=== PATIENT | female | born 1980 | race African-American/Black ===

== ENCOUNTER 2017-07-04 20:47 | Emergency (ER) | payer MEDICARE, MEDICAID ==
[~2017-07-04] VITALS: Ht 152.4 cm; Wt 79.5 kg
[~2017-07-04 20:47] MED LIST: ASPI-1264 PO; CLOT15CR5 TOP; OXYC-658 PO
[2017-07-04 21:05] VITALS: BP 129/73
[2017-07-04] MEDS ORDERED: LOPE-144 PO (22:02)
[2017-07-04] MEDS ORDERED: ONDA4TAB9 PO (22:02)
== END 2017-07-04 22:19 | disposition home or self-care (01) ==
LOC: ER 20:48
DX: F19.10 Other psychoactive substance abuse, uncomplicated (principal); F12.10 Cannabis abuse, uncomplicated; F15.10 Other stimulant abuse, uncomplicated; G89.29 Other chronic pain; Z90.49 Acquired absence of other specified parts of digestive tract; Z88.5 Allergy status to narcotic agent; Z79.82 Long term (current) use of aspirin; Z56.0 Unemployment, unspecified
CPT/HCPCS: 99283

== ENCOUNTER 2017-10-12 00:16 | Emergency (ER) | payer MEDICARE, MEDICAID ==
[~2017-10-12 00:16] MED LIST changes: +LOPE-144 PO
== END 2017-10-12 01:36 | disposition left against medical advice (07) ==
LOC: ER 00:17
DX: R25.2 Cramp and spasm (principal); Z53.21 Procedure and treatment not carried out due to patient leaving prior to being seen by health care provider

== ENCOUNTER 2017-10-12 03:02 | Emergency (ER) | payer MEDICARE, MEDICAID ==
[~2017-10-12] VITALS: Ht 152.4 cm; Wt 68.7 kg
[2017-10-12 03:05] VITALS: BP 163/112
[2017-10-12 03:26] LABS: CLARITY,URINE SLIGHTLY CLOUDY (Clear); COLOR,URINE YELLOW (Yellow); GLUCOSE, URINE NEGATIVE (Neg); KETONES,URINE NEGATIVE (Neg); LEUKOCYTE ESTERASE ,URINE SMALL (Neg); NITRITES, URINE NEGATIVE (Neg); OCCULT BLOOD,URINE TRACE-INTACT (Neg); PH,URINE 5.5 (4.8-8.0); PROTEIN,URINE 30 mg/dl (Neg); UROBILINOGEN,URINE 0.2 E.U/dL (0.2-1.0)
[2017-10-12 03:29] LABS: UA COLLECTION TYPE CLN CATCH MIDSTREAM
[2017-10-12 03:36] LABS: URINE AMPHETAMINE SCREEN POSITIVE (Neg); URINE BARBITUATE SCREEN NEGATIVE (Neg); URINE BENZODIAZEPINES SCREEN NEGATIVE (Neg); URINE CANNABINOID SCREEN NEGATIVE (Neg); URINE COCAINE SCREEN NEGATIVE (Neg); URINE METHADONE SCREEN NEGATIVE (Neg); URINE OPIATE SCREEN POSITIVE (Neg); URINE PHENCYCLIDINE SCREEN NEGATIVE (Neg)
[2017-10-12 03:42] LABS: BACTERIA,URINE 1+ /HPF (Neg); SQUAMOUS EPITHELIAL CELL,UR MODERATE /LPF (FEW)
[2017-10-12 03:43] LABS: MUCUS STRANDS MODERATE /LPF (Neg)
[2017-10-12] MEDS ORDERED: fluconazole 100mg tablet PO ONE (05:05)
[2017-10-12] MEDS ORDERED: metroNIDAZOLE 500mg tablet PO ONE (05:05)
[2017-10-12] MEDS ORDERED: fluconazole 150mg tablet PO ONE (05:45)
== END 2017-10-12 05:51 | disposition home or self-care (01) ==
LOC: ER 03:02
DX: N89.8 Other specified noninflammatory disorders of vagina (principal); F12.90 Cannabis use, unspecified, uncomplicated; F15.90 Other stimulant use, unspecified, uncomplicated; F11.90 Opioid use, unspecified, uncomplicated; Z90.49 Acquired absence of other specified parts of digestive tract; Z98.890 Other specified postprocedural states; Z56.0 Unemployment, unspecified; Z88.5 Allergy status to narcotic agent; Z79.82 Long term (current) use of aspirin; Z79.899 Other long term (current) drug therapy
CPT/HCPCS: 80305; 81001; 87088; 99284; J3490

== ENCOUNTER 2018-03-09 08:16 | Emergency (ER) | payer MEDICARE, MEDICAID ==
[~2018-03-09] VITALS: Ht 152.4 cm; Wt 75.0 kg
[~2018-03-09 08:16] MED LIST changes: +SULF1TAB49 PO
[2018-03-09] MEDS ORDERED: mupirocin 2% ointment 22GM TP STA (09:13)
[2018-03-09 09:35] VITALS: BP 159/101
== END 2018-03-09 09:37 | disposition home or self-care (01) ==
LOC: ER 08:17
DX: L02.415 Cutaneous abscess of right lower limb (principal); G89.29 Other chronic pain; F12.10 Cannabis abuse, uncomplicated; F15.10 Other stimulant abuse, uncomplicated; Z88.5 Allergy status to narcotic agent; Z79.82 Long term (current) use of aspirin; Z79.899 Other long term (current) drug therapy; Z90.49 Acquired absence of other specified parts of digestive tract; Z56.0 Unemployment, unspecified; Z86.19 Personal history of other infectious and parasitic diseases
CPT/HCPCS: 99282

== ENCOUNTER 2018-03-14 05:43 | Emergency (ER) | payer MEDICARE, MEDICAID ==
[~2018-03-14] VITALS: Ht 152.4 cm; Wt 74.0 kg
[2018-03-14 06:22] LABS: CLARITY,URINE SLIGHTLY CLOUDY (Clear); COLOR,URINE YELLOW (Yellow); GLUCOSE, URINE NEGATIVE (Neg); KETONES,URINE 15 mg/dl (Neg); LEUKOCYTE ESTERASE ,URINE NEGATIVE (Neg); NITRITES, URINE NEGATIVE (Neg); OCCULT BLOOD,URINE NEGATIVE (Neg); PH,URINE 5.5 (4.8-8.0); PROTEIN,URINE 100 mg/dl (Neg); URINE HCG NEGATIVE (NEG)
[2018-03-14 06:31] LABS: UA COLLECTION TYPE VOIDED
[2018-03-14 06:37] LABS: BACTERIA,URINE FEW /HPF (Neg); RBC,URINE NONE SEEN /HPF (0-2); WBC,URINE 0-4 /HPF (0-4)
[2018-03-14 06:38] LABS: CAL OXALATE CRYSTALS 4+ /HPF (NEGATIVE); MUCUS STRANDS MODERATE /LPF (Neg); SQUAMOUS EPITHELIAL CELL,UR MANY /LPF (FEW)
[2018-03-14] MEDS ORDERED: famotidine/PF 10 mg/ml inj IV ONE (07:05)
[2018-03-14] MEDS ORDERED: proCHLORperazine 10 MG/2 ml inj IV ONE (07:05)
[2018-03-14] MEDS ORDERED: normal saline 1000ML IV soln IVB ONE (07:05)
[2018-03-14 08:38] LABS: CLARITY,URINE CLOUDY (Clear); GLUCOSE, URINE NEGATIVE (Neg); KETONES,URINE NEGATIVE (Neg); LEUKOCYTE ESTERASE ,URINE NEGATIVE (Neg); NITRITES, URINE NEGATIVE (Neg); OCCULT BLOOD,URINE NEGATIVE (Neg); PH,URINE 5.5 (4.8-8.0); PROTEIN,URINE 30 mg/dl (Neg); UROBILINOGEN,URINE 0.2 E.U/dL (0.2-1.0)
[2018-03-14 08:52] LABS: UA COLLECTION TYPE CLN CATCH MIDSTREAM
[2018-03-14 08:53] LABS: COLOR,URINE DARK YELLOW (Yellow)
[2018-03-14 08:54] LABS: RBC,URINE NONE SEEN /HPF (0-2); WBC,URINE 0-4 /HPF (0-4)
[2018-03-14 08:55] LABS: BACTERIA,URINE FEW /HPF (Neg); CAL OXALATE CRYSTALS 4+ /HPF (NEGATIVE); MUCUS STRANDS MANY /LPF (Neg); SQUAMOUS EPITHELIAL CELL,UR MANY /LPF (FEW)
[2018-03-14 08:56] LABS: BASOPHILS # (AUTO) 0.1 X10'3 (0-0.2); BASOPHILS % (AUTO) 0.7 % (0-1); EOSINOPHILS # (AUTO) 0.2 X10'3 (0-0.9); EOSINOPHILS % (AUTO) 2.7 % (0-6); HEMOGLOBIN 14.9 g/dl (12.0-16.0); LYMPHOCYTES # (AUTO) 2.7 X10'3 (1.1-4.8); LYMPHOCYTES % (AUTO) 34.3 % (21-51); MEAN CORPUSCULAR HEMOGLOBIN 28.9 PG (27.0-31.0); MEAN CORPUSCULAR VOLUME 85.1 FL (78-98); MEAN PLATELET VOLUME 7.3 FL (7.4-10.4); MONOCYTES # (AUTO) 0.5 X10'3 (0-0.9); NEUTROPHILS # (AUTO) 4.4 X10'3 (1.8-7.7); NEUTROPHILS % (AUTO) 56.3 % (42-75); PLATELET COUNT 430 X10'3 (140-440); RED BLOOD COUNT 5.17 X10'6 (4.20-5.60); RED CELL DISTRIBUTION WIDTH 13.6 % (11.5-14.5); WHITE BLOOD COUNT 7.8 X10'3 (4.5-11.0)
[2018-03-14 09:07] LABS: HCG SERUM QL NEGATIVE
[2018-03-14 09:12] LABS: ALANINE AMINOTRANSFERASE 35 U/L (12-78); ALBUMIN 3.8 G/DL (3.4-5.0); ALBUMIN/GLOBULIN RATIO 0.9 (1.1-1.5); ALKALINE PHOSPHATASE 86 IU/L (46-116); ANION GAP 11 (8-16); ASPARTATE AMINO TRANSFERASE 24 U/L (10-37); BILIRUBIN,TOTAL 0.3 MG/DL (0.1-1.0); BLOOD UREA NITROGEN 9 MG/DL (7-18); BUN/CREATININE RATIO 14.5 (6.6-38.0); CALCIUM 9.1 MG/DL (8.5-10.1); CHLORIDE 102 MMOL/L (99-107); CREATININE 0.62 MG/DL (0.40-0.90); GLUCOSE 122 MG/DL (70-104); LIPASE 83 U/L (73-393); POTASSIUM 3.9 MMOL/L (3.5-5.1); SODIUM 140 MMOL/L (135-145); TOTAL CARBON DIOXIDE 27.5 MMOL/L (24-32); TOTAL PROTEIN 8.2 G/DL (6.4-8.2); eGFR > 90 ML/MIN
[2018-03-14] MEDS ORDERED: NAPR-56 PO (09:29)
[2018-03-14] MEDS ORDERED: ketorolac trometh. 30mg/ml inj. IM ONE (09:30)
[2018-03-14] MEDS ORDERED: ketorolac trometh. 30mg/ml inj. IV ONE (09:40)
[2018-03-14 09:52] VITALS: BP 143/97
== END 2018-03-14 09:54 | disposition home or self-care (01) ==
LOC: ER 05:45
DX: S39.011A Strain of muscle, fascia and tendon of abdomen, initial encounter (principal); R10.84 Generalized abdominal pain; F12.90 Cannabis use, unspecified, uncomplicated; F15.90 Other stimulant use, unspecified, uncomplicated; F11.90 Opioid use, unspecified, uncomplicated; G89.29 Other chronic pain; F17.200 Nicotine dependence, unspecified, uncomplicated; Z90.49 Acquired absence of other specified parts of digestive tract; Z98.890 Other specified postprocedural states; Z56.0 Unemployment, unspecified; Z88.5 Allergy status to narcotic agent; Z79.82 Long term (current) use of aspirin; Z79.899 Other long term (current) drug therapy; X58.XXXA Exposure to other specified factors, initial encounter; Y93.89 Activity, other specified; Y92.89 Other specified places as the place of occurrence of the external cause; Y99.9 Unspecified external cause status
CPT/HCPCS: 36415; 74018; 80053; 81001; 81025; 83690; 84703; 85025; 96374; 96375; 99284; J0780; J1885; J3490; J7030

== ENCOUNTER 2018-04-14 03:11 | Inpatient (IN) | payer MEDICARE, MEDICAID | END 2018-04-17 10:00 | disposition left against medical advice (07) | LOC: ER 03:11 → ED HOLD 08:10 → ORTHO 4S 15:05 ==

== ENCOUNTER → 2018-04-26 | Emergency (ER) | payer MEDICARE, MEDICAID ==
[~2018-04-26] VITALS: Ht 152.4 cm; Wt 65.9 kg
[2018-04-26 15:34] VITALS: BP 162/104
== END | disposition home or self-care (01) ==
LOC: ER 15:18
DX: L08.9 Local infection of the skin and subcutaneous tissue, unspecified (principal); G89.29 Other chronic pain; F15.90 Other stimulant use, unspecified, uncomplicated; F11.90 Opioid use, unspecified, uncomplicated; Z59.0 Homelessness; Z56.0 Unemployment, unspecified; Z90.49 Acquired absence of other specified parts of digestive tract; Z98.890 Other specified postprocedural states; Z86.14 Personal history of Methicillin resistant Staphylococcus aureus infection; Z88.5 Allergy status to narcotic agent
CPT/HCPCS: 99283

== ENCOUNTER 2018-05-29 09:52 | Emergency (ER) | payer MEDICARE, MEDICAID ==
[~2018-05-29] VITALS: Ht 154.9 cm; Wt 72.6 kg
[2018-05-29 10:11] VITALS: BP 148/92
[2018-05-29] MEDS ORDERED: LIDOcaine 1% w/epiNEPHrine 1:200,000 30ml vial IM ONE (11:35)
[2018-05-29] MEDS ORDERED: CEPH-572 PO (11:41)
[2018-05-29] MEDS ORDERED: SULF1TAB49 PO (11:41)
[2018-05-29] MEDS ORDERED: cephalexin 250mg capsule PO STA (12:26)
[2018-05-29] MEDS ORDERED: sulfamethoxazole/trimethoprim DS (800/160mg) tablet PO ONE (12:30)
[2018-05-29] MEDS ORDERED: ibuprofen tablet 400 MG TABLET PO ONE (12:35)
== END 2018-05-29 12:50 | disposition home or self-care (01) ==
LOC: ER 09:52
DX: L02.414 Cutaneous abscess of left upper limb (principal); F19.10 Other psychoactive substance abuse, uncomplicated; G89.29 Other chronic pain; F15.90 Other stimulant use, unspecified, uncomplicated; F11.90 Opioid use, unspecified, uncomplicated; Z86.14 Personal history of Methicillin resistant Staphylococcus aureus infection; Z88.5 Allergy status to narcotic agent; Z79.899 Other long term (current) drug therapy; Z98.890 Other specified postprocedural states; Z59.0 Homelessness; Z56.0 Unemployment, unspecified
CPT/HCPCS: 10060; 87070; 87186; 99284; J3490

== ENCOUNTER 2018-06-01 01:12 | Emergency (ER) | payer MEDICARE, MEDICAID ==
[~2018-06-01] VITALS: Ht 152.4 cm; Wt 73.6 kg
[~2018-06-01 01:12] MED LIST changes: -ASPI-1264 PO; +CEPH-572 PO; -CLOT15CR5 TOP; -LOPE-144 PO; -OXYC-658 PO
[2018-06-01 01:18] VITALS: BP 155/107
--- NOTE | 2018-06-01 03:00 | NUR ---
REGISTRATION REPORTS PT GOING TO [facility]WOBS. ED PROVIDER UNAVAILABLE (CRITICAL PT. IN ED) PT REPORTS SHE WILL BE BACK IN A COUPLE OF HOURS. DR MULLIGAN INFORMED
== END 2018-06-01 03:03 | disposition left against medical advice (07) ==
LOC: ER 01:12
DX: Z53.21 Procedure and treatment not carried out due to patient leaving prior to being seen by health care provider (principal)

== ENCOUNTER 2018-07-21 12:56 | Emergency (ER) | payer MEDICARE, MEDICAID ==
[~2018-07-21] VITALS: Ht 152.4 cm; Wt 73.4 kg
[2018-07-21] MEDS ORDERED: normal saline 1000ML IV soln IVB STA (14:22)
[2018-07-21] MEDS ORDERED: epiNEPHrine 1 mg/ml inj SQ ONE (14:25)
[2018-07-21] MEDS ORDERED: diphenhydrAMINE 50 mg/ml inj IV ONE (14:25)
[2018-07-21] MEDS ORDERED: methylPREDNISolone sod succ 125mg/2ml vial IV ONE (14:25)
[2018-07-21] MEDS ORDERED: PRED20TA PO (15:38)
[2018-07-21] MEDS ORDERED: FAMO40TA73 PO (15:38)
[2018-07-21] MEDS ORDERED: DIPH-423 PO (15:38)
[2018-07-21 16:10] VITALS: BP 180/113
== END 2018-07-21 16:12 | disposition home or self-care (01) ==
LOC: ER 12:57
DX: T78.3XXA Angioneurotic edema, initial encounter (principal); G89.29 Other chronic pain; M54.9 Dorsalgia, unspecified; F15.90 Other stimulant use, unspecified, uncomplicated; F11.90 Opioid use, unspecified, uncomplicated; Z90.49 Acquired absence of other specified parts of digestive tract; Z56.0 Unemployment, unspecified; Z59.0 Homelessness; Z88.6 Allergy status to analgesic agent
CPT/HCPCS: 96372; 96374; 96375; 99284; J0171; J1200; J2930; J7030

== ENCOUNTER 2018-07-27 23:40 | Emergency (ER) | payer MEDICARE, MEDICAID ==
[~2018-07-27] VITALS: Ht 152.4 cm; Wt 75.2 kg
[~2018-07-27 23:40] MED LIST changes: -CEPH-572 PO; +DIPH-423 PO; +FAMO40TA73 PO; +PRED20TA PO; -SULF1TAB49 PO
[2018-07-27 23:50] VITALS: BP 170/117
[2018-07-28] MEDS ORDERED: TRAZ150T78 PO (00:11)
[2018-07-28] MEDS ORDERED: CLON-529 PO (00:11)
[2018-07-28] MEDS ORDERED: ONDA4TAB6 PO (00:11)
[2018-08-01] MEDS ORDERED: CLON1PAT15 TOP (12:48)
[2018-08-01] MEDS ORDERED: ONDA8TAB13 PO (12:48)
== END 2018-07-28 01:28 | disposition home or self-care (01) ==
LOC: ER 23:41
DX: F11.10 Opioid abuse, uncomplicated (principal); G89.29 Other chronic pain; F15.90 Other stimulant use, unspecified, uncomplicated; Z56.0 Unemployment, unspecified; Z59.0 Homelessness; Z88.5 Allergy status to narcotic agent; Z79.899 Other long term (current) drug therapy; Z86.14 Personal history of Methicillin resistant Staphylococcus aureus infection; Z86.19 Personal history of other infectious and parasitic diseases; Z90.49 Acquired absence of other specified parts of digestive tract; Z98.890 Other specified postprocedural states
CPT/HCPCS: 99283

== ENCOUNTER 2018-08-02 03:26 | Emergency (ER) | payer MEDICARE, MEDICAID ==
[~2018-08-02] VITALS: Ht 152.4 cm; Wt 54.5 kg
[~2018-08-02 03:26] MED LIST changes: +CLON-529 PO; +CLON1PAT15 TOP; +ONDA4TAB6 PO; +ONDA8TAB13 PO; +TRAZ150T78 PO
[2018-08-02 03:28] VITALS: BP 132/55
[2018-08-02] MEDS ORDERED: cloNIDine 0.1 mg tablet PO ONE (03:35)
== END 2018-08-02 03:48 | disposition home or self-care (01) ==
LOC: ER 03:27
DX: F11.23 Opioid dependence with withdrawal (principal); G89.29 Other chronic pain; F15.90 Other stimulant use, unspecified, uncomplicated; Z90.49 Acquired absence of other specified parts of digestive tract; Z98.890 Other specified postprocedural states; Z88.5 Allergy status to narcotic agent; Z79.899 Other long term (current) drug therapy; Z59.0 Homelessness; Z56.0 Unemployment, unspecified
CPT/HCPCS: 99283

== ENCOUNTER 2018-08-21 10:23 | Emergency (ER) | payer MEDICARE, MEDICAID ==
[~2018-08-21] VITALS: Ht 152.4 cm; Wt 74.5 kg
[2018-08-21 11:17] VITALS: BP 146/79
== END 2018-08-21 11:18 | disposition home or self-care (01) ==
LOC: ER 10:24
DX: L02.31 Cutaneous abscess of buttock (principal); G89.29 Other chronic pain; M54.9 Dorsalgia, unspecified; F15.90 Other stimulant use, unspecified, uncomplicated; F11.90 Opioid use, unspecified, uncomplicated; Z90.49 Acquired absence of other specified parts of digestive tract; Z56.0 Unemployment, unspecified; Z59.0 Homelessness; Z88.6 Allergy status to analgesic agent
CPT/HCPCS: 99282

== ENCOUNTER 2018-10-07 20:07 | Emergency (ER) | payer MEDICARE, MEDICAID ==
[~2018-10-07] VITALS: Ht 152.4 cm; Wt 74.9 kg
[~2018-10-07 20:07] MED LIST changes: -PRED20TA PO
[2018-10-07 20:17] VITALS: BP 198/107
--- NOTE | 2018-10-07 21:50 | NUR ---
Call placed to number on file after attempting to Rm 3 times. Recieved message stating the caller is unavailable. Unable to leave message for follow up. Dr. Tima colorado.
== END 2018-10-07 21:52 | disposition left against medical advice (07) ==
LOC: ER 20:10 → EEVIPCON 20:10 → ER 21:52
DX: N89.8 Other specified noninflammatory disorders of vagina (principal); Z53.21 Procedure and treatment not carried out due to patient leaving prior to being seen by health care provider

== ENCOUNTER 2018-10-11 02:24 | Emergency (ER) | payer MEDICARE, MEDICAID ==
[~2018-10-11] VITALS: Ht 152.4 cm; Wt 73.0 kg
[2018-10-11] MEDS ORDERED: LIDOcaine 1% w/epiNEPHrine 1:200,000 30ml vial IM ONE (04:20)
[2018-10-11] MEDS ORDERED: SULF1TAB49 PO (05:19)
[2018-10-11] MEDS ORDERED: CLIN-96 PO (05:19)
[2018-10-11 05:32] VITALS: BP 149/75
== END 2018-10-11 05:43 | disposition home or self-care (01) ==
LOC: ER 02:25
DX: L02.416 Cutaneous abscess of left lower limb (principal); G89.29 Other chronic pain; F17.200 Nicotine dependence, unspecified, uncomplicated; F15.90 Other stimulant use, unspecified, uncomplicated; F11.90 Opioid use, unspecified, uncomplicated; Z86.14 Personal history of Methicillin resistant Staphylococcus aureus infection; Z90.49 Acquired absence of other specified parts of digestive tract; Z98.890 Other specified postprocedural states; Z59.0 Homelessness; Z56.0 Unemployment, unspecified; Z88.5 Allergy status to narcotic agent; Z79.2 Long term (current) use of antibiotics; Z79.899 Other long term (current) drug therapy
CPT/HCPCS: 10160; 87070; 87077; 87186; 99283; 99284

== ENCOUNTER 2018-11-08 15:49 | Emergency (ER) | payer MEDICARE, MEDICAID ==
[~2018-11-08 15:49] MED LIST changes: +CLIN-96 PO
== END 2018-11-08 17:27 | disposition left against medical advice (07) ==
LOC: ER 15:51
DX: R10.9 Unspecified abdominal pain (principal); Z53.21 Procedure and treatment not carried out due to patient leaving prior to being seen by health care provider

== ENCOUNTER 2018-12-23 09:50 | Emergency (ER) | payer MEDICARE, MEDICAID ==
[~2018-12-23] VITALS: Ht 152.4 cm; Wt 81.0 kg
[~2018-12-23 09:50] MED LIST changes: +CLIN-90 PO; -CLIN-96 PO
[2018-12-23] MEDS ORDERED: ketorolac trometh inj. 60 MG/2 ML VIAL IM ONE (12:10)
[2018-12-23] MEDS ORDERED: IBUP-1986 PO (12:24)
[2018-12-23 12:40] VITALS: BP 141/92
== END 2018-12-23 13:18 | disposition home or self-care (01) ==
LOC: ER 09:51
DX: R07.89 Other chest pain (principal); G89.29 Other chronic pain; F15.90 Other stimulant use, unspecified, uncomplicated; F11.90 Opioid use, unspecified, uncomplicated; Z59.0 Homelessness; Z56.0 Unemployment, unspecified; Z90.49 Acquired absence of other specified parts of digestive tract; Z98.890 Other specified postprocedural states; Z88.5 Allergy status to narcotic agent; Z79.899 Other long term (current) drug therapy
CPT/HCPCS: 71045; 93005; 96372; 99283; J1885

== ENCOUNTER 2019-01-10 21:38 | Emergency (ER) | payer MEDICARE, MEDICAID ==
[~2019-01-10] VITALS: Ht 152.4 cm; Wt 83.0 kg
[~2019-01-10 21:38] MED LIST changes: -CLIN-90 PO; +CLIN-96 PO; +IBUP-1986 PO
[2019-01-10 22:41] LABS: CLARITY,URINE CLEAR (Clear); COLOR,URINE YELLOW (Yellow); GLUCOSE, URINE NEGATIVE (Neg); KETONES,URINE NEGATIVE (Neg); LEUKOCYTE ESTERASE ,URINE NEGATIVE (Neg); NITRITES, URINE NEGATIVE (Neg); OCCULT BLOOD,URINE NEGATIVE (Neg); PH,URINE 5.5 (4.8-8.0); PROTEIN,URINE TRACE mg/dl (Neg); UROBILINOGEN,URINE 0.2 E.U/dL (0.2-1.0)
[2019-01-10 22:43] LABS: URINE HCG NEGATIVE (NEG)
[2019-01-10 22:44] LABS: BASOPHILS % (AUTO) 0.5 % (0-1); EOSINOPHILS # (AUTO) 0.1 X10'3 (0-0.9); EOSINOPHILS % (AUTO) 1.1 % (0-6); HEMATOCRIT 45.1 % (35.0-45.0); HEMOGLOBIN 15.5 g/dl (12.0-16.0); LYMPHOCYTES # (AUTO) 2.2 X10'3 (1.1-4.8); LYMPHOCYTES % (AUTO) 28.9 % (21-51); MEAN CORPUSCULAR HEMOGLOBIN 29.9 PG (27.0-31.0); MEAN CORPUSCULAR HGB CONC 34.4 g/dL (33.0-36.5); MEAN PLATELET VOLUME 7.5 FL (7.4-10.4); MONOCYTES # (AUTO) 0.6 X10'3 (0-0.9); MONOCYTES % (AUTO) 8.2 % (2-12); NEUTROPHILS # (AUTO) 4.7 X10'3 (1.8-7.7); NEUTROPHILS % (AUTO) 61.3 % (42-75); PLATELET COUNT 239 X10'3 (140-440); RED BLOOD COUNT 5.19 X10'6 (4.20-5.60); RED CELL DISTRIBUTION WIDTH 14.9 % (11.5-14.5); WHITE BLOOD COUNT 7.6 X10'3 (4.5-11.0)
[2019-01-10 22:46] LABS: UA COLLECTION TYPE CLN CATCH MIDSTREAM
[2019-01-10 22:48] LABS: BACTERIA,URINE 2+ /HPF (Neg); HYALINE CASTS 0-3 /LPF (NEGATIVE); MUCUS STRANDS FEW /LPF (Neg); RBC,URINE 0-2 /HPF (0-2); SQUAMOUS EPITHELIAL CELL,UR MANY /LPF (FEW); WBC,URINE 0-4 /HPF (0-4)
[2019-01-10 22:48] LABS: ALANINE AMINOTRANSFERASE 56 U/L (12-78); ALBUMIN/GLOBULIN RATIO 0.8 (1.1-1.5); ALKALINE PHOSPHATASE 89 IU/L (46-116); ANION GAP 9 (8-16); ASPARTATE AMINO TRANSFERASE 42 U/L (10-37); BILIRUBIN,TOTAL 0.4 MG/DL (0.1-1.0); BLOOD UREA NITROGEN 18 MG/DL (7-18); BUN/CREATININE RATIO 26.5 (6.6-38.0); CALCIUM 9.3 MG/DL (8.5-10.1); CHLORIDE 106 MMOL/L (99-107); CREATININE 0.68 MG/DL (0.40-0.90); GLUCOSE 103 MG/DL (70-104); POTASSIUM 3.9 MMOL/L (3.5-5.1); SODIUM 141 MMOL/L (135-145); TOTAL CARBON DIOXIDE 26.1 MMOL/L (24-32); TOTAL PROTEIN 8.8 G/DL (6.4-8.2); eGFR > 90 ML/MIN
--- NOTE | 2019-01-10 23:30 | NUR ---
PT ASKING TO EAT , STSTES SHE WOULD LIKE TO HAVE SOMETHING TO EAT. EDUCATED PT THAT SHE HAS TO FIRST BE SEEN BY MD BEFORE WE CAN OFFER ANY TYPE OF FOOD. PT VERBALIZED SHE WOULD LIKE TO BE SEEN BY
[2019-01-11] MEDS ORDERED: ketorolac tromethamine 15mg/ml inj. IM ONE
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
[2019-01-11 00:42] VITALS: BP 132/73
== END 2019-01-11 00:46 | disposition home or self-care (01) ==
LOC: ER 21:39
DX: R07.89 Other chest pain (principal); M54.5 Low back pain; M25.511 Pain in right shoulder; G89.29 Other chronic pain; F15.90 Other stimulant use, unspecified, uncomplicated; F11.90 Opioid use, unspecified, uncomplicated; Z86.19 Personal history of other infectious and parasitic diseases; Z86.14 Personal history of Methicillin resistant Staphylococcus aureus infection; Z90.49 Acquired absence of other specified parts of digestive tract; Z98.890 Other specified postprocedural states; Z59.0 Homelessness; Z56.0 Unemployment, unspecified; Z88.5 Allergy status to narcotic agent; Z79.899 Other long term (current) drug therapy
CPT/HCPCS: 36415; 71045; 80053; 81001; 81025; 85025; 85610; 93005; 96372; 99284; J1885; 99283

== ENCOUNTER 2019-01-19 22:30 | Emergency (ER) | payer MEDICARE, MEDICAID ==
[~2019-01-19] VITALS: Ht 152.4 cm; Wt 83.6 kg
[2019-01-19 23:17] VITALS: BP 138/103
[2019-01-19 23:37] LABS: BASOPHILS % (AUTO) 0.5 % (0-1); EOSINOPHILS % (AUTO) 0.4 % (0-6); HEMATOCRIT 46.1 % (35.0-45.0); HEMOGLOBIN 15.6 g/dl (12.0-16.0); LYMPHOCYTES # (AUTO) 2.1 X10'3 (1.1-4.8); MEAN CORPUSCULAR HEMOGLOBIN 29.8 PG (27.0-31.0); MEAN CORPUSCULAR HGB CONC 33.9 g/dL (33.0-36.5); MEAN CORPUSCULAR VOLUME 87.8 FL (78-98); MEAN PLATELET VOLUME 7.3 FL (7.4-10.4); MONOCYTES # (AUTO) 0.4 X10'3 (0-0.9); MONOCYTES % (AUTO) 4.9 % (2-12); NEUTROPHILS # (AUTO) 5.6 X10'3 (1.8-7.7); NEUTROPHILS % (AUTO) 68.2 % (42-75); PLATELET COUNT 280 X10'3 (140-440); RED BLOOD COUNT 5.25 X10'6 (4.20-5.60); RED CELL DISTRIBUTION WIDTH 14.7 % (11.5-14.5); WHITE BLOOD COUNT 8.2 X10'3 (4.5-11.0)
--- NOTE | 2019-01-19 23:47 | NUR ---
PT ATTEMPTED TO LWOB. PT AGREED TO GO BACK TO ROOM AND WAIT FOR MD. MD'S MADE AWARE OF PT WANTING TO LWOB SOON.
[2019-01-19 23:48] LABS: PARTIAL THROMBOPLASTIN TIME 29 SECONDS (22-32)
[2019-01-19 23:50] LABS: ALANINE AMINOTRANSFERASE 55 U/L (12-78); ALBUMIN 4.1 G/DL (3.4-5.0); ALBUMIN/GLOBULIN RATIO 0.8 (1.1-1.5); ALKALINE PHOSPHATASE 93 IU/L (46-116); ANION GAP 11 (8-16); ASPARTATE AMINO TRANSFERASE 36 U/L (10-37); BILIRUBIN,TOTAL 0.4 MG/DL (0.1-1.0); BLOOD UREA NITROGEN 7 MG/DL (7-18); BUN/CREATININE RATIO 9.1 (6.6-38.0); CALCIUM 9.1 MG/DL (8.5-10.1); CHLORIDE 107 MMOL/L (99-107); CREATININE 0.77 MG/DL (0.40-0.90); GLUCOSE 96 MG/DL (70-104); POTASSIUM 3.7 MMOL/L (3.5-5.1); SODIUM 144 MMOL/L (135-145); TOTAL CARBON DIOXIDE 26.2 MMOL/L (24-32); eGFR > 90 ML/MIN
[2019-01-19] MEDS ORDERED: LISI40TA4 PO (23:56)
[2019-01-21] MEDS ORDERED: AZIT-63 PO (01:49)
== END 2019-01-20 00:21 | disposition home or self-care (01) ==
LOC: ER 22:30
DX: R07.89 Other chest pain (principal); I10 Essential (primary) hypertension; G89.29 Other chronic pain; Z86.14 Personal history of Methicillin resistant Staphylococcus aureus infection; Z90.49 Acquired absence of other specified parts of digestive tract; Z88.5 Allergy status to narcotic agent; Z79.2 Long term (current) use of antibiotics; Z79.899 Other long term (current) drug therapy
CPT/HCPCS: 36415; 71045; 80053; 84484; 85025; 85610; 85730; 93005; 99284

== ENCOUNTER 2019-01-21 01:38 | Emergency (ER) | payer MEDICARE, MEDICAID ==
[~2019-01-21] VITALS: Ht 152.4 cm; Wt 83.0 kg
[~2019-01-21 01:38] MED LIST changes: +LISI40TA4 PO
[2019-01-21 01:40] VITALS: BP 145/86
[2019-01-21] MEDS ORDERED: AZIT-63 PO (01:49)
[2019-01-21] MEDS ORDERED: azithromycin 250mg tablet PO ONE (01:50)
== END 2019-01-21 02:14 | disposition left against medical advice (07) ==
LOC: ER 01:38
DX: J20.9 Acute bronchitis, unspecified (principal); G89.29 Other chronic pain; F17.200 Nicotine dependence, unspecified, uncomplicated; F15.90 Other stimulant use, unspecified, uncomplicated; F11.90 Opioid use, unspecified, uncomplicated; Z98.890 Other specified postprocedural states; Z56.0 Unemployment, unspecified; Z59.0 Homelessness; Z88.5 Allergy status to narcotic agent; Z79.2 Long term (current) use of antibiotics; Z79.899 Other long term (current) drug therapy
CPT/HCPCS: 99283

== ENCOUNTER 2019-03-21 09:06 | Emergency (ER) | payer MEDICARE, MEDICAID ==
[~2019-03-21] VITALS: Ht 160 cm; Wt 95.0 kg
[~2019-03-21 09:06] MED LIST changes: +CLIN-90 PO; -CLIN-96 PO
[2019-03-21] MEDS ORDERED: cloNIDine 0.1 mg tablet PO ONE (09:15)
--- NOTE | 2019-03-21 09:35 | NUR ---
pt was at the dr office and had high blood pressure and was told to come to the er asked her how high it was and she responded just alittle higher than it is here
[2019-03-21 10:14] LABS: BASOPHILS # (AUTO) 0.1 X10'3 (0-0.2); BASOPHILS % (AUTO) 0.8 % (0-1); EOSINOPHILS # (AUTO) 0.1 X10'3 (0-0.9); EOSINOPHILS % (AUTO) 1.1 % (0-6); HEMATOCRIT 42.5 % (35.0-45.0); HEMOGLOBIN 14.3 g/dl (12.0-16.0); LYMPHOCYTES # (AUTO) 1.9 X10'3 (1.1-4.8); LYMPHOCYTES % (AUTO) 24.6 % (21-51); MEAN CORPUSCULAR HEMOGLOBIN 30.1 PG (27.0-31.0); MEAN CORPUSCULAR HGB CONC 33.7 g/dL (33.0-36.5); MEAN CORPUSCULAR VOLUME 89.5 FL (78-98); MEAN PLATELET VOLUME 7.3 FL (7.4-10.4); MONOCYTES # (AUTO) 0.5 X10'3 (0-0.9); MONOCYTES % (AUTO) 7.2 % (2-12); NEUTROPHILS # (AUTO) 5.1 X10'3 (1.8-7.7); NEUTROPHILS % (AUTO) 66.3 % (42-75); PLATELET COUNT 263 X10'3 (140-440); RED BLOOD COUNT 4.74 X10'6 (4.20-5.60); RED CELL DISTRIBUTION WIDTH 13.5 % (11.5-14.5); WHITE BLOOD COUNT 7.7 X10'3 (4.5-11.0)
[2019-03-21 10:24] LABS: ALANINE AMINOTRANSFERASE 39 U/L (12-78); ALBUMIN 3.6 G/DL (3.4-5.0); ALBUMIN/GLOBULIN RATIO 0.9 (1.1-1.5); ALKALINE PHOSPHATASE 79 IU/L (46-116); ANION GAP 5 (8-16); ASPARTATE AMINO TRANSFERASE 22 U/L (10-37); BILIRUBIN,TOTAL 0.3 MG/DL (0.1-1.0); BLOOD UREA NITROGEN 11 MG/DL (7-18); BUN/CREATININE RATIO 14.5 (6.6-38.0); CALCIUM 8.5 MG/DL (8.5-10.1); CHLORIDE 104 MMOL/L (99-107); CREATININE 0.76 MG/DL (0.40-0.90); GLUCOSE 107 MG/DL (70-104); SODIUM 138 MMOL/L (135-145); TOTAL CARBON DIOXIDE 29.4 MMOL/L (24-32); TOTAL PROTEIN 7.6 G/DL (6.4-8.2); eGFR > 90 ML/MIN
[2019-03-21] MEDS ORDERED: CLON-529 PO (10:39)
[2019-03-21 10:43] VITALS: BP 144/69
--- NOTE | 2019-03-21 10:46 | NUR ---
pt asking "what did I come here for? I need blood pressure medication...I lost my last prescription...I need another prescription and a sandwich", José Miguel HEAD aware and wrote pt another prescription
== END 2019-03-21 10:46 | disposition home or self-care (01) ==
LOC: ER 09:06
DX: I10 Essential (primary) hypertension (principal); F15.10 Other stimulant abuse, uncomplicated; G89.29 Other chronic pain; F11.90 Opioid use, unspecified, uncomplicated; F10.99 Alcohol use, unspecified with unspecified alcohol-induced disorder; Z86.14 Personal history of Methicillin resistant Staphylococcus aureus infection; Z86.19 Personal history of other infectious and parasitic diseases; Z59.0 Homelessness; Z56.0 Unemployment, unspecified; Z88.5 Allergy status to narcotic agent; Z79.899 Other long term (current) drug therapy; Y90.9 Presence of alcohol in blood, level not specified
CPT/HCPCS: 36415; 71045; 80053; 84484; 85025; 93005; 99284

== ENCOUNTER 2019-03-24 11:44 | Emergency (ER) | payer MEDICARE, MEDICAID ==
[~2019-03-24] VITALS: Ht 152.4 cm; Wt 79.8 kg
[~2019-03-24 11:44] MED LIST changes: +LIDOcaine 1% W/epiNEPHrine 1:100,000 20ml vial ONE
[2019-03-24 11:49] VITALS: BP 155/92
--- NOTE | 2019-03-24 12:27 | NUR ---
REDNESS LEFT HIP AREA.
[2019-03-24] MEDS ORDERED: sulfamethoxazole/trimethoprim DS (800/160mg) tablet PO ONE (13:05)
[2019-03-24] MEDS ORDERED: CEPH250T PO (13:06)
[2019-03-24] MEDS ORDERED: BACDS PO (13:06)
== END 2019-03-24 13:38 | disposition home or self-care (01) ==
LOC: ER 11:45
DX: L02.416 Cutaneous abscess of left lower limb (principal); G89.29 Other chronic pain; F15.90 Other stimulant use, unspecified, uncomplicated; F11.90 Opioid use, unspecified, uncomplicated; F10.99 Alcohol use, unspecified with unspecified alcohol-induced disorder; Z90.49 Acquired absence of other specified parts of digestive tract; Z86.14 Personal history of Methicillin resistant Staphylococcus aureus infection; Z86.19 Personal history of other infectious and parasitic diseases; Z98.890 Other specified postprocedural states; Z59.0 Homelessness; Z56.0 Unemployment, unspecified; Z88.5 Allergy status to narcotic agent; Z79.899 Other long term (current) drug therapy; Y90.9 Presence of alcohol in blood, level not specified
CPT/HCPCS: 10060; 99283

== ENCOUNTER 2019-04-02 11:52 | Emergency (ER) | payer MEDICARE, MEDICAID ==
[~2019-04-02] VITALS: Ht 180.3 cm; Wt 110.0 kg
[~2019-04-02 11:52] MED LIST changes: +BACDS PO; -LIDOcaine 1% W/epiNEPHrine 1:100,000 20ml vial ONE
[2019-04-02 12:08] VITALS: BP 147/93
== END 2019-04-02 15:01 | disposition home or self-care (01) ==
LOC: ER 11:53
DX: S31.829D Unspecified open wound of left buttock, subsequent encounter (principal); X58.XXXD Exposure to other specified factors, subsequent encounter; Z48.01 Encounter for change or removal of surgical wound dressing; G89.29 Other chronic pain; F15.90 Other stimulant use, unspecified, uncomplicated; F11.90 Opioid use, unspecified, uncomplicated; F10.99 Alcohol use, unspecified with unspecified alcohol-induced disorder; Z90.49 Acquired absence of other specified parts of digestive tract; Z98.890 Other specified postprocedural states; Z56.0 Unemployment, unspecified; Z59.0 Homelessness; Z79.2 Long term (current) use of antibiotics; Z79.899 Other long term (current) drug therapy; Z86.14 Personal history of Methicillin resistant Staphylococcus aureus infection; Z88.5 Allergy status to narcotic agent; Y90.9 Presence of alcohol in blood, level not specified
CPT/HCPCS: 99281

== ENCOUNTER 2019-04-16 13:44 | Emergency (ER) | payer MEDICARE, MEDICAID ==
[~2019-04-16] VITALS: Ht 152.4 cm; Wt 79.6 kg
[~2019-04-16 13:44] MED LIST changes: -BACDS PO
[2019-04-16 14:22] VITALS: BP 125/97
[2019-04-16] MEDS ORDERED: TETanus/Pertussis (Acell)/Diphther VAC/PF (Tdap-Adult) 0.5ml syringe IMVAC ONE (15:15)
[2019-04-16] MEDS ORDERED: LIDOcaine 1% W/epiNEPHrine 1:200,000 10ml vial IJ ONE (15:15)
[2019-04-16] MEDS ORDERED: CEPH-572 PO (15:28)
[2019-04-16] MEDS ORDERED: DOXY100C43 PO (15:28)
[2019-04-16] MEDS ORDERED: IBUP-1984 PO (16:58)
[2019-04-16] MEDS ORDERED: ibuprofen tablet 400 MG TABLET PO ONE (17:00)
== END 2019-04-16 17:43 | disposition home or self-care (01) ==
LOC: ER 13:45
DX: L02.31 Cutaneous abscess of buttock (principal); G89.29 Other chronic pain; F15.90 Other stimulant use, unspecified, uncomplicated; F11.90 Opioid use, unspecified, uncomplicated; Z86.19 Personal history of other infectious and parasitic diseases; Z86.14 Personal history of Methicillin resistant Staphylococcus aureus infection; Z90.49 Acquired absence of other specified parts of digestive tract; Z98.890 Other specified postprocedural states; Z59.0 Homelessness; Z56.0 Unemployment, unspecified; Z88.5 Allergy status to narcotic agent; Z79.2 Long term (current) use of antibiotics; Z79.899 Other long term (current) drug therapy
CPT/HCPCS: 10060; 99283

== ENCOUNTER 2019-05-09 08:52 | Emergency (ER) | payer MEDICARE, MEDICAID ==
[~2019-05-09] VITALS: Ht 152.4 cm; Wt 83.6 kg
[~2019-05-09 08:52] MED LIST changes: +IBUP-1984 PO
[2019-05-09] MEDS ORDERED: CLON0.1T51 PO (09:40)
[2019-05-09] MEDS ORDERED: cloNIDine 0.1 mg tablet PO ONE (10:30)
[2019-05-09 10:35] VITALS: BP 148/85
== END 2019-05-09 10:42 | disposition home or self-care (01) ==
LOC: ER 08:53
DX: I10 Essential (primary) hypertension (principal); G89.29 Other chronic pain; F15.90 Other stimulant use, unspecified, uncomplicated; F11.90 Opioid use, unspecified, uncomplicated; Z86.19 Personal history of other infectious and parasitic diseases; Z86.14 Personal history of Methicillin resistant Staphylococcus aureus infection; Z90.49 Acquired absence of other specified parts of digestive tract; Z98.890 Other specified postprocedural states; Z59.0 Homelessness; Z56.0 Unemployment, unspecified; Z88.5 Allergy status to narcotic agent; Z79.2 Long term (current) use of antibiotics; Z79.899 Other long term (current) drug therapy
CPT/HCPCS: 93005; 99283

== ENCOUNTER 2019-09-22 21:29 | Emergency (ER) | payer MEDICARE, MEDICAID ==
[~2019-09-22] VITALS: Ht 152.4 cm; Wt 91.3 kg
[~2019-09-22 21:29] MED LIST changes: -CLIN-90 PO; -CLON-529 PO; -CLON1PAT15 TOP; -DIPH-423 PO; -FAMO40TA73 PO; -IBUP-1984 PO; -IBUP-1986 PO; -LISI40TA4 PO; -ONDA4TAB6 PO; -ONDA8TAB13 PO; -TRAZ150T78 PO; +methadone
[2019-09-22 21:45] VITALS: BP 192/113
[2019-09-23] MEDS ORDERED: FLUC150T66 PO (02:12)
[2019-09-23] MEDS ORDERED: METR-159 PO (02:12)
== END 2019-09-23 02:30 | disposition home or self-care (01) ==
LOC: ER 21:30
DX: N76.0 Acute vaginitis (principal); G89.29 Other chronic pain; F15.90 Other stimulant use, unspecified, uncomplicated; F11.90 Opioid use, unspecified, uncomplicated; Z86.19 Personal history of other infectious and parasitic diseases; Z86.14 Personal history of Methicillin resistant Staphylococcus aureus infection; Z90.49 Acquired absence of other specified parts of digestive tract; Z98.890 Other specified postprocedural states; Z59.0 Homelessness; Z56.0 Unemployment, unspecified; Z88.5 Allergy status to narcotic agent; Z79.899 Other long term (current) drug therapy
CPT/HCPCS: 99283

== ENCOUNTER 2019-11-21 03:18 | Emergency (ER) | payer BC, MEDICAID ==
[~2019-11-21] VITALS: Ht 152.4 cm; Wt 91.8 kg
[2019-11-21] MEDS ORDERED: ondansetron/PF 4mg/2ml inj IV ONE (03:40)
[2019-11-21] MEDS ORDERED: normal saline 1000ML IV soln IVB ONE (03:40)
--- NOTE | 2019-11-21 04:10 | NUR ---
ATTEMPTED TO START PT IV X3 STICKS PT JERKING ADN TWISTING AND PULLING AWAY . WAS ABLE TO GET AN EXCELLANT FLASH BUT PAT DEMANDED I REMOVE THE IV . NOTIFIED DR CUNNINGHAM THAT PT DID NOT WANT IV .
[2019-11-21] MEDS ORDERED: ondansetron 4mg rapidly disintigrating tab PO ONE (04:15)
[2019-11-21] MEDS ORDERED: ONDA4TAB6 PO (04:52)
[2019-11-21 04:58] LABS: CLARITY,URINE SLIGHTLY CLOUDY (Clear); COLOR,URINE AMBER (Yellow); GLUCOSE, URINE NEGATIVE (Neg); KETONES,URINE TRACE mg/dl (Neg); LEUKOCYTE ESTERASE ,URINE NEGATIVE (Neg); NITRITES, URINE NEGATIVE (Neg); OCCULT BLOOD,URINE NEGATIVE (Neg); PH,URINE 5.5 (4.8-8.0); PROTEIN,URINE 30 mg/dl (Neg); UA COLLECTION TYPE CLN CATCH MIDSTREAM
[2019-11-21 05:02] LABS: BACTERIA,URINE FEW /HPF (Neg); RBC,URINE 0-2 /HPF (0-2); SQUAMOUS EPITHELIAL CELL,UR MODERATE /LPF (FEW); WBC,URINE 0-4 /HPF (0-4)
[2019-11-21 05:03] LABS: MUCUS STRANDS MODERATE /LPF (Neg)
[2019-11-21 05:11] VITALS: BP 140/91
[2019-11-21 05:13] LABS: URINE AMPHETAMINE SCREEN POSITIVE (Neg); URINE BARBITUATE SCREEN NEGATIVE (Neg); URINE BENZODIAZEPINES SCREEN NEGATIVE (Neg); URINE CANNABINOID SCREEN POSITIVE (Neg); URINE COCAINE SCREEN NEGATIVE (Neg); URINE METHADONE SCREEN POSITIVE (Neg); URINE OPIATE SCREEN POSITIVE (Neg); URINE PHENCYCLIDINE SCREEN NEGATIVE (Neg)
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
== END 2019-11-21 05:17 | disposition home or self-care (01) ==
LOC: ER 03:18
DX: R11.2 Nausea with vomiting, unspecified (principal); R42 Dizziness and giddiness; F15.10 Other stimulant abuse, uncomplicated; G89.29 Other chronic pain; F11.90 Opioid use, unspecified, uncomplicated; Z86.19 Personal history of other infectious and parasitic diseases; Z86.14 Personal history of Methicillin resistant Staphylococcus aureus infection; Z90.49 Acquired absence of other specified parts of digestive tract; Z98.890 Other specified postprocedural states; Z72.89 Other problems related to lifestyle; Z56.0 Unemployment, unspecified; Z59.0 Homelessness; Z88.5 Allergy status to narcotic agent; Z79.899 Other long term (current) drug therapy
CPT/HCPCS: 80305; 81001; 99283

== ENCOUNTER 2020-01-12 05:29 | Day surgery (SDC) | payer BC, MEDICAID ==
[2020-01-09 09:37] LABS: BASOPHILS # (AUTO) 0.1 X10'3 (0-0.2); BASOPHILS % (AUTO) 1.2 % (0-1); EOSINOPHILS # (AUTO) 0.1 X10'3 (0-0.9); EOSINOPHILS % (AUTO) 1.3 % (0-6); LYMPHOCYTES # (AUTO) 2.5 X10'3 (1.1-4.8); LYMPHOCYTES % (AUTO) 29.8 % (21-51); MEAN CORPUSCULAR HEMOGLOBIN 28.1 PG (27.0-31.0); MEAN CORPUSCULAR HGB CONC 32.8 g/dL (33.0-36.5); MEAN CORPUSCULAR VOLUME 85.7 FL (78-98); MEAN PLATELET VOLUME 7.3 FL (7.4-10.4); MONOCYTES # (AUTO) 0.7 X10'3 (0-0.9); MONOCYTES % (AUTO) 7.9 % (2-12); NEUTROPHILS % (AUTO) 59.8 % (42-75); PRE OP HEMATOCRIT 46.4 % (35.0-45.0); PRE OP HEMOGLOBIN 15.2 g/dL (12.0-16.0); PRE OP PLATELET COUNT 334 X10'3 (140-440); RED BLOOD COUNT 5.41 X10'6 (4.20-5.60); RED CELL DISTRIBUTION WIDTH 14.7 % (11.5-14.5)
[2020-01-09 09:50] LABS: ALBUMIN 3.7 G/DL (3.4-5.0); ALBUMIN/GLOBULIN RATIO 0.8 (1.1-1.5); ALKALINE PHOSPHATASE 98 IU/L (46-116); BLOOD UREA NITROGEN 12 MG/DL (7-18); BUN/CREATININE RATIO 15.2 (6.6-38.0); CHLORIDE 101 MMOL/L (99-107); CREATININE 0.79 MG/DL (0.40-0.90); PRE OP ALT 38 U/L (30-65); PRE OP ANION GAP 4 (8-16); PRE OP AST 30 U/L (10-37); PRE OP BILIRUB, TOTAL 0.3 MG/DL (0.0-1.0); PRE OP GLUCOSE 96 MG/DL (70-104); PRE OP POTASSIUM 4.4 MMOL/L (3.4-5.1); PRE OP SODIUM 139 MMOL/L (135-145); TOTAL CARBON DIOXIDE 33.9 MMOL/L (24-32); TOTAL PROTEIN 8.3 G/DL (6.4-8.2); eGFR > 90 ML/MIN
[2020-01-09 10:34] LABS: HCG SERUM QL NEGATIVE
[2020-01-12] VITALS (12 sets, daily range): BP systolic 122–142; BP diastolic 71–93
[~2020-01-12] VITALS: Ht 152.4 cm; Wt 88.8 kg
[~2020-01-12 05:29] MED LIST changes: +CLON-529 PO; +DIPH-423 PO; +LISI10TA4 PO; +METH-603 PO; -methadone; +ringers solution, lacted 1,000 ML IV SCH
[2020-01-12] MEDS ORDERED: ceFOXitin sod/dextrose 2g/50ml 50 ML IV ONE (05:30)
[2020-01-12] MEDS ORDERED: famotidine 10mg tablet PO ONE ×2 (06:00→06:20)
[2020-01-12] MEDS ORDERED: ferric subsulfate solution/paste 1 APPLIC SOL.W.APPL TP ONE (06:46)
[2020-01-12] MEDS ORDERED: fentaNYL/PF 50MCG/1 ML 2ML syringe ONE (07:03)
[2020-01-12] MEDS ORDERED: propofol inj 20 ML IV ONE (07:04)
[2020-01-12] MEDS ORDERED: ondansetron/PF 4mg/2ml inj ONE ×2 (07:04)
[2020-01-12] MEDS ORDERED: LIDOcaine 2% (20mg/ml) 5ml vial ONE (07:04)
[2020-01-12] MEDS ORDERED: fentaNYL/PF 50MCG/1 ML 2ML syringe IV PRN ×2 (07:10)
[2020-01-12] MEDS ORDERED: morphine 2 MG/ML inj. syringe IV PRN (07:10)
[2020-01-12] MEDS ORDERED: labetalol 20mg/4ml (5mg/ml) syringe IV PRN (07:10)
[2020-01-12] MEDS ORDERED: ondansetron/PF 4mg/2ml inj IV PRN (07:10)
[2020-01-12] MEDS ORDERED: ringers solution, lacted 1,000 ML IV SCH (07:10)
[2020-01-12] MEDS ORDERED: hydrALAZINE 20mg/ml inj. IV PRN (07:10)
[2020-01-12] MEDS ORDERED: morphine 4 MG/ML inj SYRINge IV PRN (07:10)
[2020-01-12] MEDS ORDERED: sevoflurane 250ml liquid IH ONE (07:34)
[2020-01-12] MEDS ORDERED: dexamethasone sod phosphate 10mg/ml inj ONE (07:34)
[2020-01-12] MEDS ORDERED: acetaminophen 1,000mg/100ml IV 100 ML IV ONE (08:01)
[2020-01-12] MEDS ORDERED: oxyCODONE/APAP 5-325mg tablet PO ONE (08:15)
--- NOTE | 2020-01-12 08:20 | NUR ---
Received from OR via BED, accompanied by Anesthesiologist DR PURCELL-- and report given by Anesthesiolgist. PATIENT A&OX4, DENIES PAIN, V/S WNL, NEUROVASCULAR CHECKS INTACT, 20G PIV LUE, SCD ON, PERIPAD W/ SCANT DRAINAGE.
--- NOTE | 2020-01-12 10:00 | NUR ---
PATIENT A&OX4, DENIES PAIN, V/S WNL, NEUROVASCULAR CHECKS INTACT, 20G PIV LUE D/C, SCD OFF, PERIPAD W/ SCANT DRAINAGE. I HAVE REVIEWED D/C INSTRUCTIONS WITH PATIENT ANDAND SHE HAS VERBALIZED UNDERSTANDING. PATIENT D/C HOME WITH ALL BELONGINGS AND [facility] WORK[facility] GAVE TRANSPORT HOME.
== END 2020-01-12 10:00 | disposition home or self-care (01) ==
LOC: PAS 05:29
PROVIDERS: ATTEND Obstetrics & Gynecology
DX: D06.0 Carcinoma in situ of endocervix (principal); Z30.430 Encounter for insertion of intrauterine contraceptive device; F17.210 Nicotine dependence, cigarettes, uncomplicated; F41.9 Anxiety disorder, unspecified; F32.9 Major depressive disorder, single episode, unspecified; I10 Essential (primary) hypertension; G89.29 Other chronic pain; E66.9 Obesity, unspecified; Z68.32 Body mass index [BMI] 32.0-32.9, adult; Z86.19 Personal history of other infectious and parasitic diseases; Z90.49 Acquired absence of other specified parts of digestive tract; Z98.890 Other specified postprocedural states; Z79.899 Other long term (current) drug therapy; Z20.828 Contact with and (suspected) exposure to other viral communicable diseases; Z88.5 Allergy status to narcotic agent
CPT/HCPCS: 36415; 57522; 58300; 76937; 80053; 82948; 84703; 85025; 87635; 93005; J0131; J0694; J1100; J2001; J2405; J2704; J3010; J7120; A4618; A7000

== ENCOUNTER 2020-01-25 13:00 | Emergency (ER) | payer BC, MEDICAID ==
[~2020-01-25] VITALS: Ht 152.4 cm; Wt 84.1 kg
[~2020-01-25 13:00] MED LIST changes: -ringers solution, lacted 1,000 ML IV SCH
[2020-01-25] MEDS ORDERED: normal saline 1000ML IV soln IVB ONE (14:35)
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
[2020-01-25 15:46] LABS: BASOPHILS # (AUTO) 0.1 X10'3 (0-0.2); BASOPHILS % (AUTO) 1.1 % (0-1); EOSINOPHILS # (AUTO) 0.1 X10'3 (0-0.9); EOSINOPHILS % (AUTO) 1.6 % (0-6); HEMATOCRIT 41.9 % (35.0-45.0); HEMOGLOBIN 13.7 g/dl (12.0-16.0); LYMPHOCYTES # (AUTO) 2.5 X10'3 (1.1-4.8); LYMPHOCYTES % (AUTO) 30.7 % (21-51); MEAN CORPUSCULAR HEMOGLOBIN 28.2 PG (27.0-31.0); MEAN CORPUSCULAR HGB CONC 32.8 g/dL (33.0-36.5); MEAN PLATELET VOLUME 7.3 FL (7.4-10.4); MONOCYTES # (AUTO) 0.5 X10'3 (0-0.9); MONOCYTES % (AUTO) 5.6 % (2-12); NEUTROPHILS # (AUTO) 4.9 X10'3 (1.8-7.7); PLATELET COUNT 338 X10'3 (140-440); RED BLOOD COUNT 4.87 X10'6 (4.20-5.60); RED CELL DISTRIBUTION WIDTH 14.2 % (11.5-14.5); WHITE BLOOD COUNT 8.1 X10'3 (4.5-11.0)
--- NOTE | 2020-01-25 15:47 | NUR ---
CAROL ECHOLS FOR VAGINAL EXAM
[2020-01-25 16:22] VITALS: BP 130/79
== END 2020-01-25 16:25 | disposition home or self-care (01) ==
LOC: ER 13:01
DX: T81.9XXA Unspecified complication of procedure, initial encounter (principal); N93.9 Abnormal uterine and vaginal bleeding, unspecified; G89.29 Other chronic pain; M54.9 Dorsalgia, unspecified; F17.210 Nicotine dependence, cigarettes, uncomplicated; B18.2 Chronic viral hepatitis C; F15.10 Other stimulant abuse, uncomplicated; L02.91 Cutaneous abscess, unspecified; B95.62 Methicillin resistant Staphylococcus aureus infection as the cause of diseases classified elsewhere; Z56.0 Unemployment, unspecified; Z59.0 Homelessness; Z98.890 Other specified postprocedural states; Z88.5 Allergy status to narcotic agent; Z79.899 Other long term (current) drug therapy
CPT/HCPCS: 36415; 85025; 99284

== ENCOUNTER 2020-02-28 09:08 | Emergency (ER) | payer BC, MEDICAID ==
[~2020-02-28] VITALS: Ht 152.4 cm; Wt 93.2 kg
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
--- NOTE | 2020-02-28 09:53 | NUR ---
Patient refuses obgyn assessment. Showed pictures of her perineal area. MD to assess.
[2020-02-28 10:26] LABS: BASOPHILS # (AUTO) 0.1 X10'3 (0-0.2); BASOPHILS % (AUTO) 1.2 % (0-1); EOSINOPHILS # (AUTO) 0.1 X10'3 (0-0.9); EOSINOPHILS % (AUTO) 1.4 % (0-6); HEMATOCRIT 38.5 % (35.0-45.0); HEMOGLOBIN 12.5 g/dl (12.0-16.0); LYMPHOCYTES # (AUTO) 2.4 X10'3 (1.1-4.8); LYMPHOCYTES % (AUTO) 33.1 % (21-51); MEAN CORPUSCULAR HEMOGLOBIN 27.3 PG (27.0-31.0); MEAN CORPUSCULAR HGB CONC 32.5 g/dL (33.0-36.5); MONOCYTES # (AUTO) 0.5 X10'3 (0-0.9); MONOCYTES % (AUTO) 6.8 % (2-12); NEUTROPHILS # (AUTO) 4.1 X10'3 (1.8-7.7); NEUTROPHILS % (AUTO) 57.5 % (42-75); PLATELET COUNT 360 X10'3 (140-440); RED BLOOD COUNT 4.58 X10'6 (4.20-5.60); RED CELL DISTRIBUTION WIDTH 14.3 % (11.5-14.5); WHITE BLOOD COUNT 7.1 X10'3 (4.5-11.0)
[2020-02-28 10:38] LABS: ALANINE AMINOTRANSFERASE 42 U/L (12-78); ALBUMIN 3.5 G/DL (3.4-5.0); ALBUMIN/GLOBULIN RATIO 0.8 (1.1-1.5); ALKALINE PHOSPHATASE 103 IU/L (46-116); ANION GAP 8 (8-16); ASPARTATE AMINO TRANSFERASE 29 U/L (10-37); BILIRUBIN,TOTAL 0.3 MG/DL (0.1-1.0); BLOOD UREA NITROGEN 10 MG/DL (7-18); BUN/CREATININE RATIO 12.3 (6.6-38.0); CALCIUM 8.9 MG/DL (8.5-10.1); CHLORIDE 105 MMOL/L (99-107); CREATININE 0.81 MG/DL (0.40-0.90); GLUCOSE 110 MG/DL (70-104); POTASSIUM 4.2 MMOL/L (3.5-5.1); SODIUM 142 MMOL/L (135-145); TOTAL CARBON DIOXIDE 29.3 MMOL/L (24-32); TOTAL PROTEIN 7.8 G/DL (6.4-8.2); eGFR > 90 ML/MIN
[2020-02-28 11:12] LABS: URINE HCG NEGATIVE (NEG)
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
[2020-02-28 11:13] LABS: COLOR,URINE YELLOW (Yellow); GLUCOSE, URINE NEGATIVE (Neg); KETONES,URINE NEGATIVE (Neg); LEUKOCYTE ESTERASE ,URINE TRACE (Neg); NITRITES, URINE NEGATIVE (Neg); OCCULT BLOOD,URINE LARGE (Neg); PH,URINE 6.5 (4.8-8.0); PROTEIN,URINE NEGATIVE (Neg); UROBILINOGEN,URINE 0.2 E.U/dL (0.2-1.0)
[2020-02-28 11:57] LABS: CLARITY,URINE SLIGHTLY CLOUDY (Clear); UA COLLECTION TYPE CLN CATCH MIDSTREAM
[2020-02-28 12:03] LABS: WBC,URINE 0-4 /HPF (0-4)
[2020-02-28 12:04] LABS: BACTERIA,URINE FEW /HPF (Neg); MUCUS STRANDS FEW /LPF (Neg); SQUAMOUS EPITHELIAL CELL,UR FEW /LPF (FEW)
[2020-02-28 13:34] VITALS: BP 142/88
== END 2020-02-28 13:41 | disposition home or self-care (01) ==
LOC: ER 09:10
DX: N93.8 Other specified abnormal uterine and vaginal bleeding (principal); G89.29 Other chronic pain; F15.90 Other stimulant use, unspecified, uncomplicated; Z86.14 Personal history of Methicillin resistant Staphylococcus aureus infection; Z90.49 Acquired absence of other specified parts of digestive tract; Z56.0 Unemployment, unspecified; Z59.0 Homelessness; Z72.89 Other problems related to lifestyle; Z88.8 Allergy status to other drugs, medicaments and biological substances; Z79.899 Other long term (current) drug therapy
CPT/HCPCS: 36415; 80053; 81001; 81025; 85025; 87088; 99284

== ENCOUNTER 2020-05-15 13:31 | Emergency (ER) | payer BC, MEDICAID ==
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
--- NOTE | 2020-05-15 15:47 | NUR ---
awaiting response from [employer] for sart kit approval
== END 2020-05-15 16:06 | disposition left against medical advice (07) ==
LOC: EEVIPCON 13:32 → ER 13:32
DX: Z53.21 Procedure and treatment not carried out due to patient leaving prior to being seen by health care provider (principal)

== ENCOUNTER 2020-09-03 13:01 | Emergency (ER) | payer BC, MEDICAID ==
[~2020-09-03] VITALS: Ht 149.9 cm; Wt 90.5 kg
[~2020-09-03 13:01] MED LIST changes: +LISI10TA27 PO; -LISI10TA4 PO
[2020-09-03] MEDS ORDERED: LIDOcaine 1% W/epiNEPHrine 1:200,000 10ml vial IJ ONE (17:35)
[2020-09-03] MEDS ORDERED: DOXYCYCLINE 100MG CAPSULE PO STA (18:28)
[2020-09-03] MEDS ORDERED: clindamycin 150mg capsule PO ONE (18:35)
[2020-09-03 18:57] VITALS: BP 148/96
--- NOTE | 2020-09-03 19:06 | NUR ---
[facility] because she cannot [facility] her puppy there
== END 2020-09-03 19:07 | disposition home or self-care (01) ==
LOC: ER 13:01
DX: L02.416 Cutaneous abscess of left lower limb (principal); F15.90 Other stimulant use, unspecified, uncomplicated; F11.90 Opioid use, unspecified, uncomplicated; Z88.8 Allergy status to other drugs, medicaments and biological substances; Z79.899 Other long term (current) drug therapy; G89.29 Other chronic pain; Z86.14 Personal history of Methicillin resistant Staphylococcus aureus infection; Z86.19 Personal history of other infectious and parasitic diseases; Z56.0 Unemployment, unspecified; Z59.0 Homelessness
CPT/HCPCS: 10060; 76882; 99284

== ENCOUNTER 2020-09-05 07:59 | Emergency (ER) | payer BC, MEDICAID ==
[~2020-09-05] VITALS: Ht 152.4 cm; Wt 91.2 kg
[2020-09-05 08:01] VITALS: BP 198/118
== END 2020-09-05 08:46 | disposition home or self-care (01) ==
LOC: ER 08:00
DX: L02.416 Cutaneous abscess of left lower limb (principal); G89.29 Other chronic pain; M54.9 Dorsalgia, unspecified; F17.210 Nicotine dependence, cigarettes, uncomplicated; F15.10 Other stimulant abuse, uncomplicated; F14.10 Cocaine abuse, uncomplicated; Z56.0 Unemployment, unspecified; Z59.0 Homelessness; Z48.00 Encounter for change or removal of nonsurgical wound dressing
CPT/HCPCS: 99281

== ENCOUNTER 2020-10-11 17:51 | Emergency (ER) | payer BC, MEDICAID ==
[~2020-10-11] VITALS: Ht 149.9 cm; Wt 91.4 kg
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
[2020-10-11] MEDS ORDERED: acetaminophen 325mg tablet PO ONE (18:20)
[2020-10-11] MEDS ORDERED: LORazepam 1 MG tablet PO ONE (18:20)
[2020-10-11] MEDS: haloperidol lactate 5mg/ml inj ONE ×2 (18:30→18:57)
[2020-10-11] MEDS ORDERED: haloperidol lactate 5mg/ml inj IM STA (18:34)
[2020-10-11] MEDS ORDERED: haloperidol lactate 5mg/ml inj IM ONE (18:35)
--- NOTE | 2020-10-11 18:38 | NUR ---
Assumed care of Pt from MARGY Bae. Pt was calm when taking po ativan. When lab arrived to draw blood Pt becomming irritable and not wanting lab to draw her blood and rambling "dont put an iv in me" "why are you drawing my blood" "don't draw from here (pointinig at the site lab wanted to draw from)" pt escalating and yelling and stating we will not drawn her blood and that she does not have to let us draw her blood. Efforts made to explain to her what we were doing and the process of mental health hold. Pt escalating more and security called and adtl staff at bedside to assist holding pt to draw blood. Dr. Romero back at bedside to see behavior and haldol 5 mg im ordered. Rx given while Pt being held by staff. Pt remains in the room now and is on the bed with rails up. she was already in green scrubs and room stripped at shift change. Pt updated that urine is needed. Pt yelling in the room and rambiling nonsense "you know im a drug addict... you saw the urine... your going to have to call the business rules analyst...i dont have to stay here". Security called to stand by and MARGY Myrick and MARGY Greene at bedside to talk to Pt and try to deescalate her. Pt did go back and sit on her bed as requested.
[2020-10-11 18:52] LABS: BASOPHILS # (AUTO) 0.1 X10'3 (0-0.2); BASOPHILS % (AUTO) 0.7 % (0-1); EOSINOPHILS # (AUTO) 0.1 X10'3 (0-0.9); EOSINOPHILS % (AUTO) 0.5 % (0-6); HEMATOCRIT 47.6 % (35.0-45.0); HEMOGLOBIN 15.6 g/dl (12.0-16.0); LYMPHOCYTES # (AUTO) 2.7 X10'3 (1.1-4.8); LYMPHOCYTES % (AUTO) 23.8 % (21-51); MEAN CORPUSCULAR HEMOGLOBIN 26.8 PG (27.0-31.0); MEAN CORPUSCULAR HGB CONC 32.7 g/dL (33.0-36.5); MEAN PLATELET VOLUME 7.4 FL (7.4-10.4); MONOCYTES # (AUTO) 0.8 X10'3 (0-0.9); MONOCYTES % (AUTO) 7.1 % (2-12); NEUTROPHILS # (AUTO) 7.7 X10'3 (1.8-7.7); NEUTROPHILS % (AUTO) 67.9 % (42-75); PLATELET COUNT 365 X10'3 (140-440); RED CELL DISTRIBUTION WIDTH 15.9 % (11.5-14.5); WHITE BLOOD COUNT 11.3 X10'3 (4.5-11.0)
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
--- NOTE | 2020-10-11 19:08 | NUR ---
DR. SUTTON OK WITH WAITING A WHILE FOR PT TO PROVIDE URINE SAMPLE D/T EVERYTHING THAT JUST HAPPENED.
[2020-10-11 19:09] LABS: ALANINE AMINOTRANSFERASE 33 U/L (12-78); ALBUMIN 4.4 G/DL (3.4-5.0); ALBUMIN/GLOBULIN RATIO 0.9 (1.1-1.5); ALKALINE PHOSPHATASE 114 IU/L (46-116); ANION GAP 11 (8-16); ASPARTATE AMINO TRANSFERASE 31 U/L (10-37); BILIRUBIN,TOTAL 0.6 MG/DL (0.1-1.0); BLOOD UREA NITROGEN 10 MG/DL (7-18); BUN/CREATININE RATIO 12.3 (6.6-38.0); CALCIUM 9.4 MG/DL (8.5-10.1); CHLORIDE 101 MMOL/L (99-107); CREATININE 0.81 MG/DL (0.40-0.90); ETHANOL < 0.010 GM/DL (0.0-0.010); GLUCOSE 122 MG/DL (70-104); POTASSIUM 4.4 MMOL/L (3.5-5.1); SODIUM 140 MMOL/L (135-145); TOTAL CARBON DIOXIDE 27.9 MMOL/L (24-32); TOTAL PROTEIN 9.5 G/DL (6.4-8.2); eGFR > 90 ML/MIN
--- NOTE | 2020-10-11 19:32 | NUR ---
PT REMAINS IN HER ROOM , SITTING AT THE EDGE OF THE BED AND IS QUIET.
--- NOTE | 2020-10-11 20:09 | NUR ---
PT SLEEPING, LYING ON THE GURNEY ON HER BACK. RR 14 AND UNLABORED.
--- NOTE | 2020-10-11 20:51 | NUR ---
relieving RN for break, pt is sleeping on bed, resp even and unlabored
[2020-10-11] MEDS ORDERED: UNABLE TO OBTAIN (21:15)
--- NOTE | 2020-10-11 22:00 | NUR ---
PT HAS BEEN SLEEPING PEACFULLY SINCE APROX 1 HR AFTER RECEIVING HALDOL IM AND ATIVAN TAB. PT NOW ATTACHED TO THE VS MONITOR (BP AND SPO2) AND VSS. SWABBED FOR COVID AND PT SLEPT THROUGH IT WITH ONLY SLIGHT MOVEMENT. RR 14 AND UNLABORED. STILL NEED URINE
--- NOTE | 2020-10-12 00:16 | NUR ---
PT GIVEN SANDWICH AND CRACKERS AND JUICE. SHE REQUESTS THE LIGHTS STAY ON AND THE DOOR STAY OPEN.
--- NOTE | 2020-10-12 00:59 | NUR ---
pt is resting with eyes closed. respirations even and normal. vitals check showed normal VS.
--- NOTE | 2020-10-12 01:43 | NUR ---
PT RESTING WITH EYES CLOSED. RESPIRATIONS EVEN AND NORMAL.
--- NOTE | 2020-10-12 05:07 | NUR ---
Pt remains asleep. Shifted in the bed to her right side. Blankets covering to her shoulders. VSS.
[2020-10-12 05:09] VITALS: BP 155/100
[2020-10-12 07:09] LABS: CLARITY,URINE CLEAR (Clear); COLOR,URINE YELLOW (Yellow); GLUCOSE, URINE NEGATIVE (Neg); KETONES,URINE NEGATIVE (Neg); LEUKOCYTE ESTERASE ,URINE NEGATIVE (Neg); NITRITES, URINE NEGATIVE (Neg); OCCULT BLOOD,URINE NEGATIVE (Neg); PH,URINE 5.5 (4.8-8.0); PROTEIN,URINE 100 mg/dl (Neg); UROBILINOGEN,URINE 0.2 E.U/dL (0.2-1.0)
[2020-10-12 07:15] LABS: UA COLLECTION TYPE NON-SPECIFIED
[2020-10-12 07:17] LABS: BACTERIA,URINE FEW /HPF (Neg); MUCUS STRANDS FEW /LPF (Neg); RBC,URINE NONE SEEN /HPF (0-2); SQUAMOUS EPITHELIAL CELL,UR MODERATE /LPF (FEW); URINE HCG NEGATIVE (NEG); WBC,URINE 0-4 /HPF (0-4)
[2020-10-12 07:18] LABS: URINE AMPHETAMINE SCREEN POSITIVE (Neg); URINE BARBITUATE SCREEN NEGATIVE (Neg); URINE BENZODIAZEPINES SCREEN NEGATIVE (Neg); URINE CANNABINOID SCREEN NEGATIVE (Neg); URINE COCAINE SCREEN NEGATIVE (Neg); URINE METHADONE SCREEN POSITIVE (Neg); URINE OPIATE SCREEN POSITIVE (Neg); URINE PHENCYCLIDINE SCREEN NEGATIVE (Neg)
--- NOTE | 2020-10-12 08:19 | NUR ---
PACKET FAXED TO [facility]
--- NOTE | 2020-10-12 09:56 | NUR ---
[facility] AT FOR ASSESSMENT
== END 2020-10-12 10:30 | disposition home or self-care (01) ==
LOC: ER 17:52
DX: R44.1 Visual hallucinations (principal); Z20.822 Contact with and (suspected) exposure to COVID-19; G89.29 Other chronic pain; F15.10 Other stimulant abuse, uncomplicated; F11.10 Opioid abuse, uncomplicated; Z86.14 Personal history of Methicillin resistant Staphylococcus aureus infection; Z86.19 Personal history of other infectious and parasitic diseases; Z72.89 Other problems related to lifestyle; Z56.0 Unemployment, unspecified; Z59.0 Homelessness; Z90.49 Acquired absence of other specified parts of digestive tract; Z79.899 Other long term (current) drug therapy; Z72.0 Tobacco use
CPT/HCPCS: 36415; 80053; 80305; 80320; 81001; 81025; 84443; 85025; 87635; 96372; 99285; C9803; J1630

== ENCOUNTER 2020-10-30 20:16 | Emergency (ER) | payer BC, MEDICAID ==
[~2020-10-30] VITALS: Ht 152.4 cm; Wt 86.1 kg
[~2020-10-30 20:16] MED LIST changes: +UNABLE TO OBTAIN
[2020-10-30] MEDS ORDERED: clindamycin 150mg capsule PO ONE (23:25)
[2020-10-30] MEDS ORDERED: ondansetron 4mg rapidly disintigrating tab PO ONE (23:25)
[2020-10-30] MEDS ORDERED: CLIN150C8 PO (23:25)
[2020-10-30 23:43] VITALS: BP 170/109
== END 2020-10-30 23:46 | disposition home or self-care (01) ==
LOC: ER 20:17
DX: L03.115 Cellulitis of right lower limb (principal); L02.415 Cutaneous abscess of right lower limb; G89.29 Other chronic pain; F15.90 Other stimulant use, unspecified, uncomplicated; F11.90 Opioid use, unspecified, uncomplicated; Z86.19 Personal history of other infectious and parasitic diseases; Z86.14 Personal history of Methicillin resistant Staphylococcus aureus infection; Z90.49 Acquired absence of other specified parts of digestive tract; Z98.890 Other specified postprocedural states; Z72.89 Other problems related to lifestyle; Z56.0 Unemployment, unspecified; Z59.0 Homelessness; Z88.5 Allergy status to narcotic agent; Z79.2 Long term (current) use of antibiotics; Z79.899 Other long term (current) drug therapy
CPT/HCPCS: 99283

== ENCOUNTER 2020-11-02 03:27 | Emergency (ER) | payer BC, MEDICAID ==
[~2020-11-02] VITALS: Ht 162.6 cm; Wt 109.1 kg
[~2020-11-02 03:27] MED LIST changes: +CLIN150C8 PO
== END 2020-11-02 04:01 | disposition home or self-care (01) ==
LOC: ER 03:27
DX: L03.311 Cellulitis of abdominal wall (principal); G89.29 Other chronic pain; F15.90 Other stimulant use, unspecified, uncomplicated; F14.90 Cocaine use, unspecified, uncomplicated; F11.90 Opioid use, unspecified, uncomplicated; F17.200 Nicotine dependence, unspecified, uncomplicated; Z86.14 Personal history of Methicillin resistant Staphylococcus aureus infection; Z86.19 Personal history of other infectious and parasitic diseases; Z59.0 Homelessness; Z90.49 Acquired absence of other specified parts of digestive tract; Z56.0 Unemployment, unspecified
CPT/HCPCS: 99281

== ENCOUNTER 2020-11-19 06:32 | Emergency (ER) | payer BC, MEDICAID | END 2020-11-19 09:44 | disposition left against medical advice (07) | LOC: ER 06:33 | DX: R51.9 Headache, unspecified (principal); Z53.21 Procedure and treatment not carried out due to patient leaving prior to being seen by health care provider ==

== ENCOUNTER → 2020-11-27 | Emergency (ER) | payer BC, MEDICAID ==
[~2020-11-27] VITALS: Ht 144.8 cm; Wt 87.9 kg
[2020-11-27 17:30] VITALS: BP 174/112
== END | disposition home or self-care (01) ==
LOC: ER 17:23
DX: I10 Essential (primary) hypertension (principal); R51.9 Headache, unspecified; G89.29 Other chronic pain; F15.90 Other stimulant use, unspecified, uncomplicated; F11.90 Opioid use, unspecified, uncomplicated; Z86.14 Personal history of Methicillin resistant Staphylococcus aureus infection; Z86.19 Personal history of other infectious and parasitic diseases; Z90.49 Acquired absence of other specified parts of digestive tract; Z98.890 Other specified postprocedural states; Z72.89 Other problems related to lifestyle; Z56.0 Unemployment, unspecified; Z59.0 Homelessness; Z88.5 Allergy status to narcotic agent; Z79.2 Long term (current) use of antibiotics; Z79.899 Other long term (current) drug therapy
CPT/HCPCS: 99281

== ENCOUNTER 2021-01-02 11:10 | Emergency (ER) | payer BC, MEDICAID ==
[~2021-01-02] VITALS: Ht 152.4 cm; Wt 87.0 kg
[2021-01-02 11:19] VITALS: BP 186/122
== END 2021-01-02 12:03 | disposition home or self-care (01) ==
LOC: ER 11:11
DX: Z02.89 Encounter for other administrative examinations (principal); R51.9 Headache, unspecified; I10 Essential (primary) hypertension; G89.29 Other chronic pain; F15.90 Other stimulant use, unspecified, uncomplicated; F11.90 Opioid use, unspecified, uncomplicated; Z86.19 Personal history of other infectious and parasitic diseases; Z86.14 Personal history of Methicillin resistant Staphylococcus aureus infection; Z90.49 Acquired absence of other specified parts of digestive tract; Z98.890 Other specified postprocedural states; Z72.89 Other problems related to lifestyle; Z56.0 Unemployment, unspecified; Z59.00 Homelessness unspecified; Z88.5 Allergy status to narcotic agent; Z79.2 Long term (current) use of antibiotics; Z79.899 Other long term (current) drug therapy
CPT/HCPCS: 99281

== ENCOUNTER 2021-01-16 16:57 | Emergency (ER) | payer BC, MEDICAID | END 2021-01-16 18:57 | disposition left against medical advice (07) | LOC: ER 16:58 | DX: R07.9 Chest pain, unspecified (principal); Z53.21 Procedure and treatment not carried out due to patient leaving prior to being seen by health care provider | CPT/HCPCS: 93005 ==

== ENCOUNTER 2021-01-30 17:17 | Emergency (ER) | payer BC, MEDICAID ==
[~2021-01-30] VITALS: Ht 152.4 cm; Wt 89.5 kg
[2021-01-30 17:28] VITALS: BP 183/114
== END 2021-01-30 20:07 | disposition left against medical advice (07) ==
LOC: ER 17:17
DX: R11.10 Vomiting, unspecified (principal); I10 Essential (primary) hypertension; G89.29 Other chronic pain; F15.90 Other stimulant use, unspecified, uncomplicated; F11.90 Opioid use, unspecified, uncomplicated; Z86.19 Personal history of other infectious and parasitic diseases; Z86.14 Personal history of Methicillin resistant Staphylococcus aureus infection; Z90.49 Acquired absence of other specified parts of digestive tract; Z98.890 Other specified postprocedural states; Z72.89 Other problems related to lifestyle; Z56.0 Unemployment, unspecified; Z59.00 Homelessness unspecified; Z88.5 Allergy status to narcotic agent; Z79.2 Long term (current) use of antibiotics; Z79.899 Other long term (current) drug therapy; Z53.21 Procedure and treatment not carried out due to patient leaving prior to being seen by health care provider

== ENCOUNTER 2021-03-29 02:17 | Emergency (ER) | payer BC, MEDICAID ==
[~2021-03-29] VITALS: Ht 152.4 cm; Wt 85.4 kg
[2021-03-29 03:03] VITALS: BP 173/108
== END 2021-03-29 05:55 | disposition left against medical advice (07) ==
LOC: ER 02:20
DX: R10.12 Left upper quadrant pain (principal); R07.89 Other chest pain; Z53.21 Procedure and treatment not carried out due to patient leaving prior to being seen by health care provider

== ENCOUNTER 2021-03-31 15:08 | Emergency (ER) | payer BC, MEDICAID ==
--- NOTE | 2021-03-31 15:44 | NUR ---
Called to triage for second time, not in lobby
== END 2021-03-31 16:22 | disposition left against medical advice (07) ==
LOC: ER 15:08
DX: R21 Rash and other nonspecific skin eruption (principal); Z53.21 Procedure and treatment not carried out due to patient leaving prior to being seen by health care provider

== ENCOUNTER 2021-04-10 02:20 | Emergency (ER) | payer BC, MEDICAID ==
[~2021-04-10] VITALS: Ht 152.4 cm; Wt 86.7 kg
[2021-04-10 02:40] VITALS: BP 175/112
== END 2021-04-10 03:46 | disposition left against medical advice (07) ==
LOC: ER 02:21
DX: R05.9 Cough, unspecified (principal); R06.02 Shortness of breath; Z53.21 Procedure and treatment not carried out due to patient leaving prior to being seen by health care provider

== ENCOUNTER 2021-04-17 15:36 | Emergency (ER) | payer BC, MEDICAID ==
[~2021-04-17] VITALS: Ht 165.1 cm; Wt 85.7 kg
[2021-04-17 16:30] VITALS: BP 181/116
[2021-04-17] MEDS ORDERED: cloNIDine 0.1 mg tablet PO ONE (16:35)
== END 2021-04-18 00:10 | disposition left against medical advice (07) ==
LOC: ER 15:37
DX: I10 Essential (primary) hypertension (principal); M79.605 Pain in left leg; F19.10 Other psychoactive substance abuse, uncomplicated; R11.2 Nausea with vomiting, unspecified; M25.561 Pain in right knee; F17.200 Nicotine dependence, unspecified, uncomplicated; F15.90 Other stimulant use, unspecified, uncomplicated; F12.90 Cannabis use, unspecified, uncomplicated; Z56.0 Unemployment, unspecified; Z59.00 Homelessness unspecified; Z86.19 Personal history of other infectious and parasitic diseases; Z88.5 Allergy status to narcotic agent; Z79.899 Other long term (current) drug therapy; W19.XXXA Unspecified fall, initial encounter; Y93.89 Activity, other specified; Y92.89 Other specified places as the place of occurrence of the external cause; Y99.8 Other external cause status
CPT/HCPCS: 73564; 99283

== ENCOUNTER 2021-04-23 00:20 | Emergency (ER) | payer BC, MEDICAID | END 2021-04-23 01:31 | disposition left against medical advice (07) | LOC: ER 00:20 | DX: Z53.21 Procedure and treatment not carried out due to patient leaving prior to being seen by health care provider (principal) ==

== ENCOUNTER 2021-08-27 00:11 | Emergency (ER) | payer BC, MEDICAID ==
[~2021-08-27] VITALS: Ht 152.4 cm; Wt 90.9 kg
[2021-08-27 00:21] VITALS: BP 207/140
--- NOTE | 2021-08-27 01:13 | NUR ---
PT REQUESTED A CUP OF WATER THEN STATED I DONT WANT ANY TESTS IM JUST GOING TO LEAVE. STAFF SEEN PT LEAVING THE ER. INFORMED.
== END 2021-08-27 01:16 | disposition left against medical advice (07) ==
LOC: ER 00:12
DX: R51.9 Headache, unspecified (principal); R11.2 Nausea with vomiting, unspecified; H53.8 Other visual disturbances; I10 Essential (primary) hypertension; G89.29 Other chronic pain; F15.90 Other stimulant use, unspecified, uncomplicated; F11.90 Opioid use, unspecified, uncomplicated; Z86.19 Personal history of other infectious and parasitic diseases; Z86.14 Personal history of Methicillin resistant Staphylococcus aureus infection; Z90.49 Acquired absence of other specified parts of digestive tract; Z98.890 Other specified postprocedural states; Z72.89 Other problems related to lifestyle; Z56.0 Unemployment, unspecified; Z59.00 Homelessness unspecified; Z88.5 Allergy status to narcotic agent; Z79.2 Long term (current) use of antibiotics; Z79.899 Other long term (current) drug therapy
CPT/HCPCS: 87502; 87503; 99283

== ENCOUNTER 2021-10-12 03:07 | Emergency (ER) | payer BC, MEDICAID ==
[~2021-10-12] VITALS: Ht 152.4 cm; Wt 81.8 kg
[2021-10-12 03:25] VITALS: BP 187/96
== END 2021-10-12 05:16 | disposition left against medical advice (07) ==
LOC: ER 03:08
DX: M54.9 Dorsalgia, unspecified (principal); Z53.21 Procedure and treatment not carried out due to patient leaving prior to being seen by health care provider

== ENCOUNTER 2021-12-01 10:56 | Emergency (ER) | payer BC, MEDICAID ==
[2021-12-01] MEDS ORDERED: ibuprofen tablet 400 MG TABLET PO ONE (13:25)
[2021-12-01] MEDS ORDERED: IBUP-1986 PO (13:29)
== END 2021-12-01 13:45 | disposition home or self-care (01) ==
LOC: ER 10:57
DX: R51.9 Headache, unspecified (principal); I10 Essential (primary) hypertension; G89.29 Other chronic pain; M54.50 Low back pain, unspecified; F15.20 Other stimulant dependence, uncomplicated; F11.90 Opioid use, unspecified, uncomplicated; Z88.5 Allergy status to narcotic agent; Z90.49 Acquired absence of other specified parts of digestive tract; Z56.0 Unemployment, unspecified; Z59.00 Homelessness unspecified
CPT/HCPCS: 99282

== ENCOUNTER 2022-02-04 19:13 | Emergency (ER) | payer BC, MEDICAID ==
[~2022-02-04] VITALS: Ht 152.4 cm; Wt 81.8 kg
[~2022-02-04 19:13] MED LIST changes: +IBUP-1986 PO
[2022-02-04 19:54] VITALS: BP 173/104
[2022-02-04] MEDS ORDERED: CefTRIAXone 1000mg IM Kit (w/lidocaine diluent) IM ONE (21:50)
[2022-02-04] MEDS ORDERED: azithromycin 250mg tablet PO ONE (21:50)
[2022-02-04 21:55] LABS: CLARITY,URINE CLEAR (Clear); COLOR,URINE YELLOW (Yellow); GLUCOSE, URINE NEGATIVE (Neg); KETONES,URINE TRACE mg/dl (Neg); LEUKOCYTE ESTERASE ,URINE NEGATIVE (Neg); NITRITES, URINE NEGATIVE (Neg); OCCULT BLOOD,URINE SMALL (Neg); PH,URINE 5.5 (4.8-8.0); PROTEIN,URINE 100 mg/dl (Neg); URINE HCG NEGATIVE (NEG); UROBILINOGEN,URINE 0.2 E.U/dL (0.2-1.0)
[2022-02-04 22:07] LABS: BACTERIA,URINE FEW /HPF (Neg); SQUAMOUS EPITHELIAL CELL,UR FEW /LPF (FEW); WBC,URINE 0-4 /HPF (0-4)
[2022-02-04 22:08] LABS: MUCUS STRANDS FEW /LPF (Neg)
[2022-02-04 22:29] LABS: UA COLLECTION TYPE NON-SPECIFIED
== END 2022-02-04 22:22 | disposition home or self-care (01) ==
LOC: ER 19:13
DX: R30.0 Dysuria (principal); I10 Essential (primary) hypertension; G89.29 Other chronic pain; M54.50 Low back pain, unspecified; F12.90 Cannabis use, unspecified, uncomplicated; F15.20 Other stimulant dependence, uncomplicated; F19.10 Other psychoactive substance abuse, uncomplicated; Z20.2 Contact with and (suspected) exposure to infections with a predominantly sexual mode of transmission; Z88.5 Allergy status to narcotic agent; Z90.49 Acquired absence of other specified parts of digestive tract; Z59.00 Homelessness unspecified; Z56.0 Unemployment, unspecified
CPT/HCPCS: 36415; 81001; 81025; 87491; 87591; 96372; 99283; J0696

== ENCOUNTER 2023-05-07 01:54 | Emergency (ER) | payer BC, MEDICAID ==
[~2023-05-07] VITALS: Ht 152.4 cm; Wt 80.0 kg
[~2023-05-07 01:54] MED LIST changes: +CLIN-214 PO; -CLIN150C8 PO
[2023-05-07 02:07] VITALS: BP 189/89; PULSE 95; RESP 16; TEMP 98.2; O2SAT 97
== END 2023-05-07 02:16 | disposition left against medical advice (07) ==
LOC: ER 01:55
DX: R42 Dizziness and giddiness (principal); Z53.21 Procedure and treatment not carried out due to patient leaving prior to being seen by health care provider
CPT/HCPCS: 99281

== ENCOUNTER 2023-12-08 19:35 | Emergency (ER) | payer BC, MEDICAID ==
[~2023-12-08] VITALS: Ht 152.4 cm; Wt 79.2 kg
[2023-12-08] MEDS ORDERED: ONDA-243 PO (20:11)
[2023-12-08] MEDS: ondansetron 4mg rapidly disintigrating tab PO ONE (20:19)
[2023-12-08] MEDS: HYDROcodone/acetaminophen 10/325mg tab PO ONE (20:19)
[2023-12-08 20:24] VITALS: BP 142/87; PULSE 88; RESP 18; TEMP 98.5; O2SAT 97
== END 2023-12-08 20:25 | disposition home or self-care (01) ==
LOC: ER 19:36
DX: S09.90XA Unspecified injury of head, initial encounter (principal); I10 Essential (primary) hypertension; G89.29 Other chronic pain; M54.9 Dorsalgia, unspecified; F12.90 Cannabis use, unspecified, uncomplicated; F15.90 Other stimulant use, unspecified, uncomplicated; Z88.5 Allergy status to narcotic agent; Z79.2 Long term (current) use of antibiotics; Z79.1 Long term (current) use of non-steroidal anti-inflammatories (NSAID); Z79.899 Other long term (current) drug therapy; Z90.49 Acquired absence of other specified parts of digestive tract; Y08.89XA Assault by other specified means, initial encounter; Y93.89 Activity, other specified; Y92.89 Other specified places as the place of occurrence of the external cause; Y99.8 Other external cause status
CPT/HCPCS: 99283

== ENCOUNTER 2024-03-11 12:17 | Emergency (ER) | payer BC, MEDICAID ==
[~2024-03-11] VITALS: Ht 152.4 cm; Wt 80.6 kg
[~2024-03-11 12:17] MED LIST changes: +ONDA-243 PO
[2024-03-11 12:18] VITALS: TEMP 98.1
[2024-03-11] MEDS: cloNIDine 0.1 mg tablet PO ONE (12:51)
[2024-03-11] MEDS ORDERED: LISI20TA28 PO (13:56)
[2024-03-11 14:11] VITALS: BP 166/101; PULSE 92; RESP 16; O2SAT 97
== END 2024-03-11 14:13 | disposition home or self-care (01) ==
LOC: ER 12:18
DX: I10 Essential (primary) hypertension (principal); G89.29 Other chronic pain; M54.9 Dorsalgia, unspecified; F12.90 Cannabis use, unspecified, uncomplicated; F15.90 Other stimulant use, unspecified, uncomplicated; F11.90 Opioid use, unspecified, uncomplicated; F19.90 Other psychoactive substance use, unspecified, uncomplicated; Z90.49 Acquired absence of other specified parts of digestive tract; Z56.0 Unemployment, unspecified; Z59.00 Homelessness unspecified; Z72.89 Other problems related to lifestyle; Z88.5 Allergy status to narcotic agent; Z79.1 Long term (current) use of non-steroidal anti-inflammatories (NSAID); Z79.899 Other long term (current) drug therapy
CPT/HCPCS: 99283

== ENCOUNTER 2024-06-07 22:23 | Emergency (ER) | payer BC, MEDICAID ==
[~2024-06-07] VITALS: Ht 167.6 cm; Wt 70.3 kg
[2024-06-07 22:26] VITALS: BP 131/76; PULSE 86; O2SAT 97
[2024-06-08 00:10] VITALS: TEMP 96.8
[2024-06-08] MEDS: SUMAtriptan succ. 6 MG/0.5ml vial SQ ONE (00:20)
[2024-06-08 00:21] VITALS: RESP 15
[2024-06-08] MEDS: ketorolac trometh 30MG/ML vial 30 MG/ML VIAL IM ONE (00:21)
== END 2024-06-08 00:26 | disposition home or self-care (01) ==
LOC: ER 22:24
DX: G43.909 Migraine, unspecified, not intractable, without status migrainosus (principal); Z59.00 Homelessness unspecified; I10 Essential (primary) hypertension; F12.90 Cannabis use, unspecified, uncomplicated; F15.90 Other stimulant use, unspecified, uncomplicated; F11.90 Opioid use, unspecified, uncomplicated; Z88.5 Allergy status to narcotic agent; Z88.8 Allergy status to other drugs, medicaments and biological substances; Z90.49 Acquired absence of other specified parts of digestive tract
CPT/HCPCS: 96372; 99284; J1885; J3030

== ENCOUNTER → 2024-11-07 | Emergency (ER) | payer BC, MEDICAID ==
[~2024-11-07] VITALS: Ht 152.4 cm; Wt 74.7 kg
[2024-11-07 13:32] VITALS: PULSE 76; RESP 16; TEMP 96.8; O2SAT 98
--- NOTE | 2024-11-07 15:45 | Physician Documentation ---
History of Present Illness ~ Chief Complaint: Vaginal pain Stated Complaint: MULTIPLE MEDICAL COMPLAINTS Time Seen by MD: 15:41 Primary Medical Doctor: Guevara HPI Patient is seen today with a vague complaints of vaginal pain but denies any presence of discharge or fever or chills or chest pain or shortness of breath or abdominal pain or nausea, vomiting, diarrhea. Patient has no other concern or complaint at this time. Patient states she is homeless and it is very hot outside and she would like a place to sit down for a while and get some cool air. Patient has no other concern or complaint at this time. Medication Reconciliation Allergies: Coded Allergies: codeine (Verified Allergy, Unknown, HIVES, 06/07/24) Scheduled Clindamycin HCl (Clindamycin HCl CAPSULE), 1 CAP PO QID Clonidine Hcl* (Catapres*), 0.1 MG PO BID, (Reported) Diphenhydramine Hcl (Benadryl), 25 MG PO BID PRN ITCHING, (Reported) Ibuprofen (Ibuprofen), 1 TAB PO Q8H Lisinopril (Lisinopril), 10 MG PO DAILY, (Reported) Methadone Hcl* (Dolophine*), 189 MG PO DAILY, (Reported) Scheduled PRN ONDANSETRON ODT 4mg tablet (Ondansetron Odt), 1 TAB PO Q6H PRN PRN for nausea/vomiting Miscellaneous Medications Unable to Obtain Medications (Unable to Obtain Medications), (Reported) Past Medical History Past Medical History: Headache, Migraine, Hypertension, Hepatitis C, Chronic Pain, Chronic Back Pain, Cellulitis, MRSA Abscess Past Surgical History: cholecystectomy, orthopedic surgeries, other Other Past Surgical History: LEEP Other Past Family History: none Alcohol Use: Occasionally Drug Use: marijuana, methamphetamine, heroin, other Lives In: Homeless Occupation: unemployed Review of Systems Constitutional: Denies: chills, fever, weakness Eyes: Denies: pain, blurred vision ENT: Denies: ear pain, nose pain, throat pain, mouth pain Respiratory: Denies: cough, shortness of breath Cardiovascular: Denies: chest pain, palpitations Gastrointestinal: Denies: abdominal pain, nausea, vomiting Genitourinary: Denies: burning, dysuria Female Genitalia: Denies: vaginal discharge, pelvic pain Neurological: Denies: headache, dizziness Musculoskeletal: Denies: pain, swelling Integumentary: Denies: rash, lesions Allergic/Immunologic: Denies: hives, itching Hematologic/Lymphatic: Denies: no symptoms reported Psychiatric: Denies: depression, anxiety Physical Exam Vital Signs: Temperature: 96.8, Source: Temporal, Heart Rate: 76, Respiratory Rate: 16, Pulse Oximetry: 98, Weight: 74.700 Oxygen Flow Rate: 0 Physical Exam General: Awake and Alert, no acute distress. HEENT: Conjunctiva pink, Sclera clear, Mucus Membranes moist. Neck: Supple without masses and tenderness. Genitourinary: Patient declined genitourinary exam today. Abdomen: Soft and non tender no organomegaly Extremities: No cyanosis,clubbing or edema. Skin: Warm and Dry. Progress Results/Orders Results/Orders Vital Signs 11/07/24 13:32 Temp 96.8 Pulse 76 Resp 16 Pulse Ox 98 O2 Flow Rate 0 Medical Decision Making Findings Patient is seen today with a vague complaints of vaginal pain but denies any presence of discharge or fever or chills or chest pain or shortness of breath or abdominal pain or nausea, vomiting, diarrhea. Patient has no other concern or complaint at this time. Patient states she is homeless and it is very hot outside and she would like a place to sit down for a while and get some cool air. Patient has no other concern or complaint at this time. Patient was given a glass of water and patient departed prior to any further eval or lab testing or treatment. Patient will follow up with primary care in 2-5 days if no better as needed sooner. Return to ED with any worsening, concerning or changing symptoms. Departure Disposition: 07 LEFT AWOL/ELOPED Impression: Primary Impression: Discomfort of vagina Condition: Stable Additional Instructions: Patient was given a glass of water and patient departed prior to any further eval or lab testing or treatment. Patient will follow up with primary care in 2-5 days if no better as needed sooner. Return to ED with any worsening, concerning or changing symptoms. Referrals: NO PRIMARY CARE PROVIDER (PCP) Signature Scribe Signature: No scribe Attestation: No scribe FLAVIO FLETCHER PAC Nov 07, 2024 15:44
== END | disposition left against medical advice (07) ==
LOC: ER 13:08
DX: R10.2 Pelvic and perineal pain (principal); I10 Essential (primary) hypertension; G43.909 Migraine, unspecified, not intractable, without status migrainosus; F12.90 Cannabis use, unspecified, uncomplicated; F15.90 Other stimulant use, unspecified, uncomplicated; F11.90 Opioid use, unspecified, uncomplicated; Z59.00 Homelessness unspecified; Z88.5 Allergy status to narcotic agent; Z90.49 Acquired absence of other specified parts of digestive tract; Z79.899 Other long term (current) drug therapy; Z72.89 Other problems related to lifestyle; Z56.0 Unemployment, unspecified
CPT/HCPCS: 99282

== ENCOUNTER 2024-11-14 12:41 | Emergency (ER) | payer BC, MEDICAID ==
[~2024-11-14] VITALS: Ht 160 cm; Wt 72.7 kg
[2024-11-14 12:50] VITALS: BP 168/120; PULSE 84; RESP 16; TEMP 98.7; O2SAT 98
[2024-11-14] MEDS ORDERED: ibuprofen tablet 400 MG TABLET PO STA (14:24)
--- NOTE | 2024-11-14 14:25 | Physician Documentation ---
History of Present Illness ~ Chief Complaint: Head Pain Stated Complaint: HEADACHE Time Seen by MD: 14:00 Primary Medical Doctor: None HPI Patient is seen today with complaints of being homeless and wanting a sandwich and some food. Patient states she is unable to go to the [place]. Patient states he also has a mild headache and complains of some vague medical problems but denies any chest pain or shortness of breath or abdominal pain or nausea, vomiting, diarrhea. Patient denies any fevers or chills in his no other concern or complaint at this time. Patient denies any head injury or loss of consciousness or changes in vision or hearing. Medication Reconciliation Allergies: Coded Allergies: codeine (Verified Allergy, Unknown, HIVES, 11/14/24) Scheduled Clindamycin HCl (Clindamycin HCl CAPSULE), 1 CAP PO QID Clonidine Hcl* (Catapres*), 0.1 MG PO BID, (Reported) Diphenhydramine Hcl (Benadryl), 25 MG PO BID PRN ITCHING, (Reported) Ibuprofen (Ibuprofen), 1 TAB PO Q8H Lisinopril (Lisinopril), 10 MG PO DAILY, (Reported) Methadone Hcl* (Dolophine*), 189 MG PO DAILY, (Reported) Scheduled PRN ONDANSETRON ODT 4mg tablet (Ondansetron Odt), 1 TAB PO Q6H PRN PRN for nausea/vomiting Miscellaneous Medications Unable to Obtain Medications (Unable to Obtain Medications), (Reported) Past Medical History Past Medical History: Headache, Migraine, Hypertension, Hepatitis C, Chronic Pain, Chronic Back Pain, Cellulitis, MRSA Abscess Past Surgical History: cholecystectomy, orthopedic surgeries, other Other Past Surgical History: LEEP Other Past Family History: none Alcohol Use: Occasionally Drug Use: marijuana, methamphetamine, heroin, other Lives In: Homeless Occupation: unemployed Review of Systems Constitutional: Denies: chills, fever, weakness Eyes: Denies: pain, blurred vision ENT: Denies: ear pain, nose pain, throat pain, mouth pain Respiratory: Denies: cough, shortness of breath Cardiovascular: Denies: chest pain, palpitations Gastrointestinal: Denies: abdominal pain, nausea, vomiting Genitourinary: Denies: burning, dysuria Female Genitalia: Denies: vaginal discharge, pelvic pain Neurological: Denies: headache, dizziness Musculoskeletal: Denies: pain, swelling Integumentary: Denies: rash, lesions Allergic/Immunologic: Denies: hives, itching Hematologic/Lymphatic: Denies: no symptoms reported Psychiatric: Denies: depression, anxiety Physical Exam Vital Signs: Temperature: 98.7, Heart Rate: 84, Respiratory Rate: 16, BP: 168/ 120, Pulse Oximetry: 98, Weight: 72.700 Oxygen Flow Rate: 0 Physical Exam General: Awake and Alert, no acute distress. HEENT: Conjunctiva pink, Sclera clear, Mucus Membranes moist. Neck: Supple without masses and tenderness. Resp: Unlabored. Lungs clear to auscultation bilaterally. Heart: Regular Rate and rhythm, normal S1 and S2 without murmur, rub or gallop. Abdomen: Soft and non tender no organomegaly Extremities: No cyanosis,clubbing or edema. Skin: Warm and Dry. Progress Results/Orders Results/Orders Vital Signs 11/14/24 12:50 Temp 98.7 Pulse 84 Resp 16 B/P (MAP) 168/120 Pulse Ox 98 O2 Flow Rate 0 Medical Decision Making Findings Patient is seen today with complaints of being homeless and wanting a sandwich and some food. Patient states she is unable to go to the [place]. Patient states he also has a mild headache and complains of some vague medical problems but denies any chest pain or shortness of breath or abdominal pain or nausea, vomiting, diarrhea. Patient denies any fevers or chills in his no other concern or complaint at this time. Patient denies any head injury or loss of consciousness or changes in vision or hearing. Patient was directed that they are better after in his to receive food such as at the soup kitchen with the [place]. Patient patient was given a sandwich and some ibuprofen for headache. Patient will follow up with primary care at the [facility] and will return to ED with any worsening, concerning or changing symptoms. Departure Disposition: HOME / SELF CARE / HOMELESS Impression: Primary Impression: Headache Qualified Codes: G44.209 - Tension-type headache, unspecified, not intractable Additional Impressions: Methamphetamine abuse Homeless Condition: Stable Discharge Instructions: Headache Additional Instructions: Patient was directed that they are better after in his to receive food such as at the soup kitchen with the [place]. Patient patient was given a sandwich and some ibuprofen for headache. Patient will follow up with primary care at the [facility] and will return to ED with any worsening, concerning or changing symptoms. Referrals: NO PRIMARY CARE PROVIDER (PCP) Signature Scribe Signature: No scribe Attestation: No scribe FLAVIO FLETCHER PAC Nov 14, 2024 14:25
== END 2024-11-14 14:35 | disposition home or self-care (01) ==
LOC: ER 12:42
DX: G43.909 Migraine, unspecified, not intractable, without status migrainosus (principal); F15.10 Other stimulant abuse, uncomplicated; I10 Essential (primary) hypertension; F12.90 Cannabis use, unspecified, uncomplicated; F11.90 Opioid use, unspecified, uncomplicated; F19.90 Other psychoactive substance use, unspecified, uncomplicated; Z88.5 Allergy status to narcotic agent; Z59.00 Homelessness unspecified; Z90.49 Acquired absence of other specified parts of digestive tract; Z79.899 Other long term (current) drug therapy; Z56.0 Unemployment, unspecified; Z72.89 Other problems related to lifestyle
CPT/HCPCS: 99282

== ENCOUNTER 2025-01-02 01:34 | Emergency (ER) | payer BC, MEDICAID ==
[~2025-01-02] VITALS: Ht 157.5 cm; Wt 71.0 kg
[2025-01-02 02:03] VITALS: BP 206/125; PULSE 89; RESP 16; TEMP 98.7; O2SAT 96
--- NOTE | 2025-01-02 02:33 | Physician Documentation ---
History of Present Illness ~ Chief Complaint: Vaginal Bleeding Stated Complaint: ABDOMINAL DISCOMFORT Time Seen by MD: 02:07 Primary Medical Doctor: None HPI When the patient checked in at triage she said that she has had vaginal bleeding for multiple months it has stopped recently and that she wanted her IUD removed. After triage she waited briefly in the waiting room and then was placed into bed 13. She told the nurse and myself that she just wanted to sandwich because she is homeless. And does not have any medical complaints. Medication Reconciliation Allergies: Coded Allergies: codeine (Verified Allergy, Unknown, HIVES, 11/14/24) Scheduled Clindamycin HCl (Clindamycin HCl CAPSULE), 1 CAP PO QID Clonidine Hcl* (Catapres*), 0.1 MG PO BID, (Reported) Diphenhydramine Hcl (Benadryl), 25 MG PO BID PRN ITCHING, (Reported) Ibuprofen (Ibuprofen), 1 TAB PO Q8H Lisinopril (Lisinopril), 10 MG PO DAILY, (Reported) Methadone Hcl* (Dolophine*), 189 MG PO DAILY, (Reported) Scheduled PRN ONDANSETRON ODT 4mg tablet (Ondansetron Odt), 1 TAB PO Q6H PRN PRN for nausea/vomiting Miscellaneous Medications Unable to Obtain Medications (Unable to Obtain Medications), (Reported) Past Medical History Past Medical History: Headache, Migraine, Hypertension, Hepatitis C, Chronic Pain, Chronic Back Pain, Cellulitis, MRSA Abscess Past Surgical History: cholecystectomy, orthopedic surgeries, other Other Past Surgical History: LEEP Other Past Family History: none Alcohol Use: Occasionally Drug Use: marijuana, methamphetamine, heroin, other Lives In: Homeless Occupation: unemployed Physical Exam Vital Signs: Temperature: 98.7, Heart Rate: 89, Respiratory Rate: 16, BP: 206/125, Pulse Oximetry: 96, Weight: 71.000 Oxygen Flow Rate: 0 Physical Exam General: Awake and Alert, no acute distress. HEENT: Conjunctiva pink, Sclera clear, Neck: Supple Resp: Unlabored. Heart: Good perfusion Abdomen: Nondistended Extremities: No cyanosis,clubbing or edema. Skin: Warm and Dry. Neuro: no focal deficits Progress Results/Orders Results/Orders Orders - MANDA OROPEZA MD Urinalysis, Cult If Indicated (01/02/25 01:55) Hcg, Ur Ql (01/02/25 01:55) Vital Signs 01/02/25 01/02/25 01:40 02:03 Temp 98.7 98.7 Pulse 86 89 Resp 16 16 B/P (MAP) 173/119 206/125 (152) Pulse Ox 96 96 O2 Flow Rate 0 Medical Decision Making Findings Patient presented with multiple complaints about vaginal bleeding for a few months and then was not question about having her IUD removed. She was brought to room 13 she had no complaint she said that she is homeless and just wants a sandwich. It she is hypotensive so I started to rechecked her blood pressure but she is refusing that she says she has a history of hypertension does not medications at home. Departure Disposition: HOME / SELF CARE / HOMELESS Impression: Primary Impression: Homeless Condition: Stable Discharge Instructions: Dysfunctional Uterine Bleeding Referrals: NO PRIMARY CARE PROVIDER (PCP) Education Educated: Patient Educated regarding: diagnosis, treatment, prognosis, need for follow up Signature Scribe Signature: no scribe Attestation: no scribe MANDA OROPEZA MD Jan 02, 2025 02:33
== END 2025-01-02 02:42 | disposition home or self-care (01) ==
LOC: ER 01:35
DX: N93.9 Abnormal uterine and vaginal bleeding, unspecified (principal); I10 Essential (primary) hypertension; G89.29 Other chronic pain; F12.90 Cannabis use, unspecified, uncomplicated; F15.90 Other stimulant use, unspecified, uncomplicated; F11.90 Opioid use, unspecified, uncomplicated; F19.90 Other psychoactive substance use, unspecified, uncomplicated; G43.909 Migraine, unspecified, not intractable, without status migrainosus; Z59.00 Homelessness unspecified; Z86.14 Personal history of Methicillin resistant Staphylococcus aureus infection; Z90.49 Acquired absence of other specified parts of digestive tract; Z86.19 Personal history of other infectious and parasitic diseases; Z88.5 Allergy status to narcotic agent; Z79.899 Other long term (current) drug therapy; Z72.89 Other problems related to lifestyle; Z56.0 Unemployment, unspecified
CPT/HCPCS: 99283